=== PATIENT | female | born 1950 | race Caucasian/White ===

== ENCOUNTER 2016-10-05 10:31 | Outpatient (CLI) | payer MEDICAID, MEDICARE | END 2016-10-05 23:59 | DX: I10 Essential (primary) hypertension (principal) ==

== ENCOUNTER 2018-05-09 14:31 | Outpatient (CLI) | payer MEDICARE ==
[2018-05-09 19:31] LABS: BASOPHILS # (AUTO) 0.2 10^3/uL (0.0-0.1); BASOPHILS % (AUTO) 2.1 %; EOSINOPHILS # (AUTO) 0.1 10^3/uL (0.0-0.7); EOSINOPHILS % (AUTO) 1.8 %; HGB - HEMOGLOBIN 13.9 g/dL (12.0-16.0); LYMPHOCYTES # (AUTO) 1.8 10^3/uL (1.5-3.5); LYMPHOCYTES % (AUTO) 22.5 %; MEAN CORPUSCULAR HEMOGLOBIN 29.7 pg (27.0-31.0); MEAN PLATELET VOLUME 8.3 fL (7.9-10.8); MONOCYTES # (AUTO) 0.9 10^3/uL (0.0-1.0); MONOCYTES % (AUTO) 11.5 %; NEUTROPHILS % (AUTO) 62.1 %; PLT - PLATELET COUNT 405 10^3/uL (130-450); RED BLOOD COUNT 4.69 10^6/uL (4.20-5.40); RED CELL DISTRIBUTION WIDTH 14.4 % (12.0-15.0); WHITE BLOOD COUNT 8.1 x10^3/uL (4.8-10.8)
[2018-05-09 20:09] LABS: ALBUMIN 4.1 g/dL (3.2-5.5); ALBUMIN/GLOBULIN RATIO 1.2 (1.0-2.2); ALKALINE PHOSPHATASE 67 IU/L (42-121); ALT ALANINE AMINOTRANSFERASE 28 IU/L (10-60); AST ASPARTATE AMINOTRANSFERASE 31 IU/L (10-42); BILIRUBIN,TOTAL 0.8 mg/dL (0.2-1.0); BUN - BLOOD UREA NITROGEN 22 mg/dL (6-20); CALCIUM 9.3 mg/dL (8.5-10.3); CARBON DIOXIDE - CO2 26 mmol/L (21-32); CHLORIDE 105 mmol/L (101-111); CHOL/HDL RATIO 4.7 (<4.4); CHOLESTEROL 204 mg/dL; CREATININE 1.4 mg/dL (0.4-1.0); GFR - MDRD 38 (>89); GLUCOSE 96 mg/dL (70-100); HDL CHOLESTEROL 43 mg/dL; LDL CHOLESTEROL,CALCULATED 118 mg/dL; LDL/HDL RATIO 2.7 (<4.4); SODIUM 139 mmol/L (135-145); TOTAL PROTEIN 7.4 g/dL (6.7-8.2); VLDL CHOLESTEROL 43 mg/dL
== END 2018-05-09 14:32 ==
LOC: LAB.N 14:31
PROVIDERS: ATTEND Nurse Practitioner
DX: I10 Essential (primary) hypertension (principal)
CPT/HCPCS: 36415; 80053; 80061; 83721; 85025

== ENCOUNTER 2018-10-09 14:21 | Inpatient (IN) | payer MEDICARE ==
--- NOTE | 2018-10-09 14:49 | ED Physician Documentation ---
PD HPI ALTERED MENTAL STATUS - Stated complaint Stated Complaint: AMS/DIZZY - Chief complaint Chief Complaint: Neuro - History obtained from History obtained from: Patient, Family - History of Present Illness Timing - onset: How many days ago (several days of progressive weakness, nausea, less appetite. No pains in head, chest, abd. Denies vomiting nor diarrhea, but has had little appetite. Some frequency of urination, without pain per se. No cough, congestion nor sore throat.) Timing - duration: Days (few) Timing - details: Gradual onset, Still present Quality / character: Less responsive, Confused, Other (general weakness. Less oral intake. Still taking usual medications, except for today.) Associated symptoms: Urinary sx, General weakness. 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 denies: Fever Nose: denies: Rhinorrhea / runny nose, Congestion Throat: denies: Sore throat Cardiac: denies: Chest pain / pressure Respiratory: denies: Cough GI: reports: Abdominal Pain (cramping general pains), Nausea. denies: Vomiting, Diarrhea : reports: Frequency (she says just small amounts of urine out the past couple of days.) Skin: denies: Rash Neurologic: reports: Generalized weakness, Confused, Altered mental status. denies: Focal weakness, Headache, Head injury PD PAST MEDICAL HISTORY - Past Medical History Cardiovascular: Hypertension Respiratory: None Neuro: Other (prior anuerysms with surgery years ago, stable, without seizures nor ongoing headaches.) Endocrine/Autoimmune: None GI: None - Present Medications Home Medications: Ambulatory Orders Medication Instructions Recorded Confirmed Amlodipine Besylate 10 mg PO DAILY 10/09/18 Lisinopril 40 mg PO DAILY 10/09/18 - Allergies Allergies/Adverse Reactions: Allergies Allergy/AdvReac Type Severity Reaction Status Date / Time No Known Drug Allergies Allergy Verified 10/09/18 15:57 PD ED PE NORMAL - Vitals Vital signs reviewed: Yes (cool to the touch, hypotensive) - General General: No: Alert and oriented X 3 (sleepy but rousable, opens eyes and 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 Symmetric facial and extremity movements. ) - HEENT HEENT: Ears normal, Pharynx benign. No: Moist mucous membranes - Neck Neck: Supple, no meningeal sign, No adenopathy - Cardiac Cardiac: RRR, No murmur - Respiratory Respiratory: Clear bilaterally - Abdomen Abdomen: Normal bowel sounds, Soft, Non distended, No organomegaly, Other (some tenderness mid abdomen without guarding nor percussion tenderness. Bowel sounds diminished. ) - Female Female : Deferred - Rectal Rectal: Deferred - Back Back: No CVA TTP - Derm Derm: Warm and dry. No: Normal color (pale) - Extremities Extremities: No tenderness to palpate, Normal ROM s pain, No edema - Neuro Neuro: No motor deficit. No: Alert and oriented X 3 Eye Opening: To Voice Motor: Localizes to Pain Verbal: Confused GCS Score: 12 Results - Vitals Vitals: Vital Signs - 24 hr 10/09/18 10/09/18 10/09/18 14:28 14:30 14:32 Temperature 35.2 C L Heart Rate 102 H 83 87 Respiratory 14 22 21 Rate Blood Pressure 70/57 L 103/74 83/40 L O2 Saturation 91 L 94 93 10/09/18 10/09/18 10/09/18 14:45 15:02 15:30 Temperature 34.3 C L Heart Rate 84 85 87 Respiratory 20 19 18 Rate Blood Pressure 74/29 L 103/74 103/74 O2 Saturation 96 95 97 10/09/18 10/09/18 10/09/18 16:01 16:03 16:15 Temperature 36.5 C Heart Rate 85 94 86 Respiratory 18 18 18 Rate Blood Pressure 115/64 102/78 111/82 H O2 Saturation 93 93 94 10/09/18 10/09/18 16:29 16:30 Temperature 36.5 C Heart Rate 88 Respiratory 18 Rate Blood Pressure 115/77 O2 Saturation 94 Oxygen O2 Source Nasal cannula Oxygen Flow Rate 2 - Labs Labs: Laboratory Tests 10/09/18 10/09/18 10/09/18 14:45 14:45 14:45 WBC 17.8 H RBC 5.18 Hgb 15.6 Hct 46.5 MCV 89.7 MCH 30.1 MCHC 33.6 RDW 14.3 Plt Count 601 H MPV 8.1 Neut # (Auto) 15.1 H Lymph # (Auto) 1.6 [place] # (Auto) 0.9 Eos # (Auto) 0.0 Baso # (Auto) 0.1 Absolute Nucleated RBC 0.01 Nucleated RBC % 0.1 PT 14.3 H INR 1.3 H APTT 28.9 Sodium 137 Potassium 3.0 L Chloride 93 L Carbon Dioxide 21 Anion Gap 23.0 H BUN 89 H* Creatinine 3.9 H Estimated GFR (MDRD) 11 L Glucose 209 H Lactic Acid Calcium 9.6 Magnesium Total Bilirubin 1.7 H AST 40 ALT 29 Alkaline Phosphatase 62 Total Protein 8.0 Albumin 3.9 Globulin 4.1 Albumin/Globulin Ratio 1.0 Lipase 61 H Urine Color Urine Clarity Urine pH Ur Specific [place] Urine Protein Urine Glucose (UA) Urine Ketones Urine Occult Blood Urine Nitrite Urine Bilirubin Urine Urobilinogen Ur Leukocyte Esterase Urine RBC Urine WBC Ur Squamous Epith Cells Amorphous Sediment Urine Bacteria Ur Microscopic Review Urine Culture Comments Influenza A (Rapid) Influenza B (Rapid) 10/09/18 10/09/18 10/09/18 14:45 14:45 15:04 WBC RBC Hgb Hct MCV MCH MCHC RDW Plt Count MPV Neut # (Auto) Lymph # (Auto) [place] # (Auto) Eos # (Auto) Baso # (Auto) Absolute Nucleated RBC Nucleated RBC % PT INR APTT Sodium Potassium Chloride Carbon Dioxide Anion Gap BUN Creatinine Estimated GFR (MDRD) Glucose Lactic Acid 6.0 H* Calcium Magnesium 2.8 Total Bilirubin AST ALT Alkaline Phosphatase Total Protein Albumin Globulin Albumin/Globulin Ratio Lipase Urine Color Urine Clarity Urine pH Ur Specific [place] Urine Protein Urine Glucose (UA) Urine Ketones Urine Occult Blood Urine Nitrite Urine Bilirubin Urine Urobilinogen Ur Leukocyte Esterase Urine RBC Urine WBC Ur Squamous Epith Cells Amorphous Sediment Urine Bacteria Ur Microscopic Review Urine Culture Comments Influenza A (Rapid) Negative Influenza B (Rapid) Negative 10/09/18 15:45 WBC RBC Hgb Hct MCV MCH MCHC RDW Plt Count MPV Neut # (Auto) Lymph # (Auto) [place] # (Auto) Eos # (Auto) Baso # (Auto) Absolute Nucleated RBC Nucleated RBC % PT INR APTT Sodium Potassium Chloride Carbon Dioxide Anion Gap BUN Creatinine Estimated GFR (MDRD) Glucose Lactic Acid Calcium Magnesium Total Bilirubin AST ALT Alkaline Phosphatase Total Protein Albumin Globulin Albumin/Globulin Ratio Lipase Urine Color YELLOW Urine Clarity CLOUDY Urine pH 7.5 Ur Specific [place] 1.020 Urine Protein 30 H Urine Glucose (UA) NEGATIVE Urine Ketones TRACE Urine Occult Blood NEGATIVE Urine Nitrite NEGATIVE Urine Bilirubin NEGATIVE Urine Urobilinogen 0.2 (NORMAL) Ur Leukocyte Esterase MODERATE H Urine RBC None Seen Urine WBC 6-10 H Ur Squamous Epith Cells NONE SEEN Amorphous Sediment Few Urine Bacteria Moderate H Ur Microscopic Review INDICATED Urine Culture Comments INDICATED Influenza A (Rapid) Influenza B (Rapid) - Rads (name of study) chest xray Radiology: Prelim report reviewed (no infiltrates), EMP read contemporaneously, See rad report abd CT Radiology: Prelim report reviewed (no acute infectious process), EMP read contemporaneously, See rad report PD MEDICAL DECISION MAKING - ED course Complexity details: re-evaluated patient (Initially hypotensive and hypothermic with improved blood pressure given just some IV fluids. She is warmed as well. She is becoming more alert. She does have markers for sepsis with hypothermia, hypotension, elevated white count and lactate. There is possible UTI on urinalysis. We will treat general sepsis antibiotics. No other obvious source at this time.), considered differential (Concern for sepsis or metabolic disorder. She does seem dehydrated. She is hypotensive and hypothermic we will give IV fluids and warm her. Place a To catheter and to assess output and also her urine since she has been having some dysuria. Will check flu test and chest x-ray. She has some mild general abdominal tenderness we can get a CT scan to evaluate.), d/w patient Departure - Departure Disposition: 66 [facility] DC/Xfer Clinical Impression: Dehydration, Acute renal insufficiency, General weakness Sepsis Qualifiers: Sepsis type: sepsis due to unspecified organism Qualified Code(s): A41.9 - Sepsis, unspecified organism UTI (urinary tract infection) Qualifiers: Urinary tract infection type: acute cystitis Hematuria presence: without hematuria Qualified Code(s): N30.00 - Acute cystitis without hematuria Condition: Stable Record reviewed to determine appropriate education?: Yes
[2018-10-09] MEDS ORDERED: SODIUM CHLORIDE 0.9% 1,000 ML IV ONE (15:11)
[2018-10-09 15:18] LABS: BASOPHILS # (AUTO) 0.1 10^3/uL (0.0-0.1); BASOPHILS % (AUTO) 0.5 %; EOSINOPHILS % (AUTO) 0.2 %; HGB - HEMOGLOBIN 15.6 g/dL (12.0-16.0); INR 1.3 (0.8-1.2); LYMPHOCYTES # (AUTO) 1.6 10^3/uL (1.5-3.5); LYMPHOCYTES % (AUTO) 9.1 %; MEAN CORPUSCULAR HEMOGLOBIN 30.1 pg (27.0-31.0); MEAN CORPUSCULAR HGB CONC 33.6 g/dL (32.0-36.0); MEAN CORPUSCULAR VOLUME 89.7 fL (81.0-99.0); MEAN PLATELET VOLUME 8.1 fL (7.9-10.8); MONOCYTES # (AUTO) 0.9 10^3/uL (0.0-1.0); MONOCYTES % (AUTO) 5.3 %; NEUTROPHILS # (AUTO) 15.1 10^3/uL (1.5-6.6); NEUTROPHILS % (AUTO) 84.9 %; PLT - PLATELET COUNT 601 10^3/uL (130-450); PT - PROTHROMBIN TIME 14.3 secs (9.9-12.6); RED BLOOD COUNT 5.18 10^6/uL (4.20-5.40); RED CELL DISTRIBUTION WIDTH 14.3 % (12.0-15.0); WHITE BLOOD COUNT 17.8 x10^3/uL (4.8-10.8)
[2018-10-09 15:27] LABS: ALBUMIN 3.9 g/dL (3.2-5.5); BILIRUBIN,TOTAL 1.7 mg/dL (0.2-1.0); CALCIUM 9.6 mg/dL (8.5-10.3); CREATININE 3.9 mg/dL (0.4-1.0)
[2018-10-09] MEDS ORDERED: CEFEPIME 2 GM in SODIUM CHLORIDE 0.9% MINIBAG 100 ML IV STA (15:33)
[2018-10-09] MEDS ORDERED: metroNIDAZOLE 500 MG/100 ML 500 MG/100 ML BAG IV STA (15:36)
[2018-10-09 15:54] LABS: GLUCOSE, URINE (UA) NEGATIVE (NEGATIVE); KETONES,URINE (UA) TRACE mg/dL (NEGATIVE); LEUKOCYTE ESTERASE, URINE MODERATE (NEGATIVE); NITRITE,URINE NEGATIVE (NEGATIVE); OCCULT BLOOD,URINE NEGATIVE (NEGATIVE); PH,URINE 7.5 PH (5.0-7.5); PROTEIN,URINE 30 mg/dL (NEGATIVE); UROBILINOGEN,URINE 0.2 (NORMAL) E.U./dL (NORMAL)
--- NOTE | 2018-10-09 16:00 | XRAY Report ---
Reason: fatigue, altered mental status Procedure Date: 10/09/2018 Accession Number: [id number] / [id number] Procedure: XR - Chest 1 View X-Ray CPT Code: 87564 FULL RESULT: EXAM: CHEST RADIOGRAPHY EXAM DATE: 10/09/2018 03:39 PM. CLINICAL HISTORY: Fatigue, altered mental status. COMPARISON: None. TECHNIQUE: 1 view. FINDINGS: Lungs/Pleura: No focal opacities evident. No pleural effusion. No pneumothorax. Mediastinum: Heart is within normal limits in size for technique. Other: Multiple ECG leads overlie the chest. IMPRESSION: No acute findings. RADIA
[2018-10-09 16:03] LABS: BILIRUBIN,URINE NEGATIVE (NEGATIVE); CLARITY,URINE CLOUDY (CLEAR); ICTOTEST,URINE NEGATIVE
[2018-10-09 16:06] LABS: RBC,URINE None Seen /HPF (0-5); SQUAMOUS EPITHELIAL CELL,UR NONE SEEN (<= Few)
[2018-10-09 16:07] LABS: AMORPHOUS SEDIMENT,UR Few /LPF; BACTERIA,URINE Moderate /HPF (None Seen)
--- NOTE | 2018-10-09 16:19 | CT Report ---
Reason: altered mental status; some abd pain Procedure Date: 10/09/2018 Accession Number: [id number] / [id number] Procedure: CT - Abdomen/Pelvis W/O CPT Code: FULL RESULT: EXAM: CT ABDOMEN AND PELVIS (CT KUB) EXAM DATE: 10/09/2018 03:57 PM. CLINICAL HISTORY: Altered mental status; some abd pain. COMPARISONS: None. TECHNIQUE: Routine axial helical CT imaging was performed through the abdomen and pelvis without IV contrast. Reconstructions: Coronal and sagittal. In accordance with CT protocol optimization, one or more of the following dose reduction techniques were utilized for this exam: automated exposure control, adjustment of mA and/or KV based on patient size, or use of iterative reconstructive technique. FINDINGS: Lung Bases: Nonspecific pleural-parenchymal densities along the lateral major fissure right lower lung. No confluent airspace opacities. Right Kidney/Ureter: No stones, hydronephrosis, or hydroureter. No perinephric fat stranding. Left Kidney/Ureter: No stones, hydronephrosis, or hydroureter. No perinephric fat stranding. Other Solid Organs: There is an exophytic 19 mm cystic mass from the tail of the pancreas, reference series 5 image 33. There is symmetric mild enlargement of both adrenal glands which retain their chevron shape. The solid organs are within expected limits on noncontrast exams. Gallbladder/Bile Ducts: Unremarkable. Peritoneal Cavity: No free fluid, free air or cecil adenopathy. Colonic diverticulosis without evidence of diverticulitis. Pelvic Organs: No bladder stones or wall thickening. Noncontrast images of the visualized pelvic organs are unremarkable. Vasculature: Unremarkable. Other: None. IMPRESSION: 1. No specific imaging findings to explain abdominal pain. 2. 19 mm exophytic cystic lesion of the pancreatic tail favors pancreatic neoplasia/IPMN. RADIA
[2018-10-09] MEDS: SODIUM CHLORIDE 0.9% 1,000 ML IV ONE ×2 (16:27→16:50)
[2018-10-09] MEDS ORDERED: POTASSIUM CHLOR 10 MEQ/100 ML 10 MEQ/100 ML BAG IV ONE (16:40)
[2018-10-09] MEDS ORDERED: ACETAMINOPHEN 325 MG TABLET PO PRN (17:19)
[2018-10-09] MEDS ORDERED: ALBUTEROL NEB 2.5 MG/3 ML INH PRN (17:19)
[2018-10-09] MEDS ORDERED: IPRATROPIUM 0.2 MG/ML NEB INH PRN (17:19)
[2018-10-09] MEDS ORDERED: ONDANSETRON 4 MG/2 ML VIAL IVP PRN (17:19)
[2018-10-09] MEDS ORDERED: PIPERACILLIN/TAZOBACTAM 3.375 GM in SODIUM CHLORIDE 0.9% MINIBAG 100 ML IV SCH (18:00)
--- NOTE | 2018-10-09 18:26 | HISTORY & PHYSICAL EXAMINATION ---
Chief Complaint - Chief Complaint Chief Complaint: weakness, chills, confusion History of Present Illness - Admitted From Admitted From:: Home - History Obtained From Records Reviewed: Yes History obtained from: patient and daughter Exam Limitations: none - History of Present Illness HPI Comment/Other: This is a 68 y/o obese patient with hx intracranial aneurysm s/p repair, HTN, hyperlipidemia, UTI's, CKD stage 2, milld vascular dementia who p/w from home with increased progressive weakness associated with pelvic pain, dysuria, confusion from baseline as per daughter as well as rigors, chills and a non- productive cough. Patient had a FC in ED with bag showing cloudy urine with initial BP 74/29, was given agressive IVF resuscitation with improved SBP>100, found to be in PRAVIN with cr 3.9, bun 89 with K 3.0, appeared dry and in mod- severe dehydration with prior BP meds haven been taken at home (HCTZ, Lisinopril, Norvasc), was also on ASA for her CVA ppx. Patient had a UA showing 6-10 WBC's with mod LE, trace ketones but with co2 21, hyperglycemic but w/o dx of Dm-2. Lactic acid was markedly elevated at 6.o but w/o a true source of infection other than suspected recurrent UTI with early sepsis and a normal CXR. WBC 17.8, patient was hypothermic at 34.3, and hypotensive, LFT's were normal and lipase as well despite abd pain but CT abd pelvis does not show hydronephrosis, however there is evidence of a 19 mm exophytic cystic lesion at the pancreatic tail that may represent neoplasm vs IPMN. Patient was started on IV cefepime and flagyl and subsequently transitioned over to empiric broad- spectrum Abx for sepsis R/T UTI likely. History - Past Medical History Cardiovascular: reports: Hypertension Respiratory: reports: None Neuro: reports: Dementia (vascular type ), Other (prior anuerysms with surgery years ago, stable, without seizures nor ongoing headaches.) Endocrine/Autoimmune: reports: None GI: reports: None - Past Surgical History Other past surgical history: IC aneyrysms on right and left s/p repair Meds/Allgy - Home Medications Home Medications: Ambulatory Orders Medication Instructions Recorded Confirmed Amlodipine Besylate 10 mg PO DAILY 10/09/18 10/09/18 Aspirin [Adult Aspirin] 81 mg PO DAILY 10/09/18 10/09/18 Hydrochlorothiazide 12.5 mg PO DAILY 10/09/18 10/09/18 Lisinopril 40 mg PO DAILY 10/09/18 10/09/18 - Allergies Allergies/Adverse Reactions: Allergies Allergy/AdvReac Type Severity Reaction Status Date / Time No Known Drug Allergies Allergy Verified 10/09/18 15:57 Review of Systems - Constitutional Constitutional: reports: Fatigue, Chills, Malaise, Weakness, Poor appetite - Cardiovascular Cariovascular: denies: Irregular heart rate, Palpitations, Chest pain - Respiratory Respiratory: reports: Cough. denies: Sputum production, Wheezing, Hemoptysis - Gastrointestinal Gastrointestinal: reports: Abdominal pain. denies: Abdominal distention, Constipation, Diarrhea, Nausea, Vomiting, Reflux/heartburn - Genitourinary Genitourinary: reports: Dysuria, Frequency. denies: Hematuria, Flank pain, Urethral discharge - Musculoskeletal Musculoskeletal: reports: Muscle weakness. denies: Joint pain, Joint swelling - Integumentary Integumentary: denies: Rash - Neurological Neurological: denies: General weakness, Focal weakness, Dizziness, Numbness, Memory problems, Seizures - Psychiatric Psychiatric: denies: Depression, Anxiety - Endocrine Endocrine: reports: Polyuria. denies: Intolerance to heat - Hematologic/Lymphatic Hematologic/Lymphatic: denies: Anemia - All Other Systems All Other Systems: reports: Reviewed and negative Prior Level of Functionality: Patient lives alone and independent with ADL's Exam - Vital Signs Reviewed Vital Signs: Yes Vital Signs: Vital Signs x48h Temp Pulse Resp BP Pulse Ox 10/09/18 18:00 36.9 C 10/09/18 17:00 88 18 112/68 94 10/09/18 16:57 88 18 103/61 93 10/09/18 16:45 87 18 103/61 93 10/09/18 16:30 88 18 115/77 94 10/09/18 16:29 36.5 C 10/09/18 16:15 36.5 C 86 18 111/82 H 94 10/09/18 16:03 94 18 102/78 93 10/09/18 16:01 85 18 115/64 93 10/09/18 15:30 34.3 C L 87 18 103/74 97 10/09/18 15:02 85 19 103/74 95 10/09/18 14:45 84 20 74/29 L 96 10/09/18 14:32 87 21 83/40 L 93 10/09/18 14:30 83 22 103/74 94 10/09/18 14:28 35.2 C L 102 H 14 70/57 L 91 L Vital Signs 10/09/18 10/09/18 10/09/18 14:28 14:30 14:32 Temperature 35.2 C L Heart Rate 102 H 83 87 Respiratory 14 22 21 Rate Blood Pressure 70/57 L 103/74 83/40 L O2 Saturation 91 L 94 93 10/09/18 10/09/18 10/09/18 14:45 15:02 15:30 Temperature 34.3 C L Heart Rate 84 85 87 Respiratory 20 19 18 Rate Blood Pressure 74/29 L 103/74 103/74 O2 Saturation 96 95 97 10/09/18 10/09/18 10/09/18 16:01 16:03 16:15 Temperature 36.5 C Heart Rate 85 94 86 Respiratory 18 18 18 Rate Blood Pressure 115/64 102/78 111/82 H O2 Saturation 93 93 94 10/09/18 10/09/18 10/09/18 16:29 16:30 16:45 Temperature 36.5 C Heart Rate 88 87 Respiratory 18 18 Rate Blood Pressure 115/77 103/61 O2 Saturation 94 93 10/09/18 10/09/18 10/09/18 16:57 17:00 18:00 Temperature 36.9 C Heart Rate 88 88 Respiratory 18 18 Rate Blood Pressure 103/61 112/68 O2 Saturation 93 94 - Physical Exam General Appearance: positive: No acute distress, Alert, Other (Acutely ill- appearing) Eyes Bilateral: positive: PERRL, EOMI ENT: positive: Pharynx nml, Dry mucous membranes. negative: Oral lesions Neck: positive: Nml inspection, Thyroid nml, No JVD, Trachea midline, Thyromegaly. negative: Carotid bruit Respiratory: positive: Chest non-tender, No respiratory distress, Breath sounds nml. negative: Wheezes, Rales, Rhonchi Cardiovascular: positive: Regular rate & rhythm, No murmur, No gallop. negative: JVD present, Systolic murmur, Gallop/S4 Peripheral Pulses: positive: 2+ Abdomen: positive: Non-tender, No organomegaly, Nml bowel sounds, No distention. negative: Tenderness Back: positive: Nml inspection. negative: CVA tenderness (R), CVA tenderness (L) Skin: positive: Color nml, No rash, Dry Extremities: positive: Non-tender, Full ROM, Nml appearance. negative: Pedal edema, Calf tenderness Neurologic/Psychiatric: positive: Oriented x3, CN's nml (2-12) (: SP pain on deep palpation) Sepsis Event Note (H) - Evaluation Current Stage of Sepsis: Sepsis Possible source of Sepsis: positive: Genitourinary - Sepsis Criteria Sepsis Criteria: Recorded Temperature greater than 38.3C or Less than 36C, WBC count greater than 12,000 or less than 4000, SHUTTLELESS LOOM WEAVER: altered consciousness (unrelated to primary neuro pathology), SBP less than 90 mmHg, Metabolic: lactate > 2 mmol/L Conclusion/Plan - Problem List (1) Sepsis Conclusion/Plan: Admit to ICU. Start early goal directed tx. Consider CVp plcmt and pressor support. Likely secondary to UTI with clinical presentation of pelvic pain and cystitis signs and symptoms, with weakly positive UTI would f/u urine cx ans well as blood cultures to eval for bacteremia with e. coli as this has been known to cause loss of endothelial tone due to toxinogenic nature relate to process. empirically treat with broad spectrum IV abx with zosyn, early-goal directed tx with ivf's, will defer pressors for now as she has responded to 1 L NS, cont with LR at 175 ml/hr. Daily labs, cycle lactic acid levels, markedly high at 6 on presentation. Cortisol level in am. Flu was negative. Do to he severity of illness advance care planning may need to be discussed as she does have risk factors such as prior IC-aneurysms and UTI's. However family was not ready to discuss this right now. Qualifiers: Sepsis type: sepsis due to unspecified organism Qualified Code(s): A41.9 - Sepsis, unspecified organism (2) PRAVIN (acute kidney injury) Conclusion/Plan: Secondary to combined pre-renal from dehydration, hypoperfusion with possible sepsis-induced component with loss of endothelial tone. There also could be an intr-renal component due to drug-induced from DAISHA-inh as she was on lisinopril as well as htcz and norvasc as well. Would avoid ALL nephrotoxic agents for now, CT abd/pelvis shows no hydronephrosis, no stones and uric acid to follow. Would continue to perfuse kidneys, correct lytes, no evidence of metabolic acidosis. Uremia p/w pravin and will follow daily labs. Not candidate for FREIGHT FLAGMAN at this time. (3) Hypokalemia Conclusion/Plan: Secondary to the use of HCTZ with decrease PO fluid intake and mod dehydration. Would continue with high rate LR to replete electrolyte d/o. Will hold off o KCL for now in the setting of impaired GFR and Cr clearance. Magnesium level nrml. (4) CKD (chronic kidney disease), stage II Conclusion/Plan: Sec to HTN nephropathy. Would avoid nephrotoxic agents, correct lytes, monitor. (5) Hyperglycemia Conclusion/Plan: Check A1c, does not have dx of DM-2. (6) Lactic acidosis Conclusion/Plan: Secondary to sepsis and not metabolic acidosis as bicarb normal with no evidence of DKA. Would continue to provide IVF resuscitation as part of the early goal directed tx for sepsis, cycle levels until they begin to normalize. (7) Dehydration Conclusion/Plan: Secondary to sepsis process along with diureses and decrease oral intake with progression. Hypochloremia seen. Continue with LR at high rate, electrolyte repletion. (8) UTI (urinary tract infection) Conclusion/Plan: Patient has decreased mobility along with hx prior UTI's with no likelihood of recurrence with e. coli or other pathogen (i.e klebsiella, citrobacter). Would treat with IV zosyn for now until Ucx comes back for ID and sensitivities. Qualifiers: Urinary tract infection type: acute cystitis Hematuria presence: without hematuria Qualified Code(s): N30.00 - Acute cystitis without hematuria (9) Pancreatic cyst Conclusion/Plan: CT abd/plevis shows a 19 mm exophytic pancreatic tail cyst that may represent neoplasm/IPMN, will monitor for now, lipase normal. - Lab Results Fish Bones: 10/09/18 14:45 10/09/18 14:45 - Diagnostic Imaging Results Diagnostic Imaging Results: positive: Final report reviewed (CXR shows no acute CP process) - EKG Results EKG Interpreted Independently: Yes EKG Comparison: Old EKG unavailable (SR) Core Measures - Anticipated LOS I expect patient to be DC'd or transferred within 96 hours.: Yes - Issues Hospital Issues and Management Plan: Sepsis with complications if not treated early with IV abx, fluids and critical care mgmt - DVT/VTE - Prophylaxis VTE/DVT Device ordered at admit?: No Not Ordered - Medical Reason: Not indicated VTE/DVT Prophylaxis med ordered at admit?: Yes - Stroke - Rehab Assessment Rehab services assessment to be ordered?: No Not Ordered - Medical Reason: Not indicated - AMI - Statin at Admit Aspirin Prescribed on Admit: Yes
[2018-10-09 18:36] LABS: CREATININE,URINE 28.6 mg/dL; PROTEIN/CREATININE RATIO,URINE 2.1 (<=0.2)
[2018-10-09] MEDS: LACTATED RINGERS 1,000 ML IV SCH (18:46)
[2018-10-09] MEDS: PIPERACILLIN/TAZOBACTAM 3.375 GM in SODIUM CHLORIDE 0.9% MINIBAG 100 ML IV SCH (19:25)
[2018-10-09] MEDS: FAMOTIDINE 20 MG/50 ML 50 ML IV SCH (20:46)
[2018-10-09] MEDS: guaiFENesin/DEXTROMETHORPHAN 10 ML UDC PO PRN (20:46)
[2018-10-09] MEDS ORDERED: TEMAZEPAM 7.5 MG CAPSULE PO PRN (22:02)
[2018-10-10] MEDS: LACTATED RINGERS 1,000 ML IV SCH ×4 (01:02→21:34)
[2018-10-10] MEDS: SODIUM CHLORIDE FLUSH 0.9% 10 ML SYRINGE IVP SCH ×3 (01:05→16:33)
[2018-10-10] MEDS: PIPERACILLIN/TAZOBACTAM 3.375 GM in SODIUM CHLORIDE 0.9% MINIBAG 100 ML IV SCH (06:15)
[2018-10-10 06:23] LABS: BASOPHILS # (AUTO) 0.1 10^3/uL (0.0-0.1); BASOPHILS % (AUTO) 0.8 %; EOSINOPHILS # (AUTO) 0.1 10^3/uL (0.0-0.7); EOSINOPHILS % (AUTO) 0.6 %; HGB - HEMOGLOBIN 12.7 g/dL (12.0-16.0); LYMPHOCYTES # (AUTO) 0.9 10^3/uL (1.5-3.5); LYMPHOCYTES % (AUTO) 7.2 %; MEAN CORPUSCULAR HEMOGLOBIN 29.5 pg (27.0-31.0); MEAN CORPUSCULAR HGB CONC 32.6 g/dL (32.0-36.0); MEAN CORPUSCULAR VOLUME 90.5 fL (81.0-99.0); MEAN PLATELET VOLUME 7.5 fL (7.9-10.8); MONOCYTES # (AUTO) 1.1 10^3/uL (0.0-1.0); NEUTROPHILS # (AUTO) 9.9 10^3/uL (1.5-6.6); NEUTROPHILS % (AUTO) 82.4 %; PLT - PLATELET COUNT 359 10^3/uL (130-450); RED BLOOD COUNT 4.32 10^6/uL (4.20-5.40); WHITE BLOOD COUNT 12.1 x10^3/uL (4.8-10.8)
[2018-10-10 06:48] LABS: BILIRUBIN,TOTAL 1.3 mg/dL (0.2-1.0); CALCIUM 8.4 mg/dL (8.5-10.3); CREATININE 2.9 mg/dL (0.4-1.0); MAGNESIUM 2.4 mg/dL (1.7-2.8); TOTAL PROTEIN 6.1 g/dL (6.7-8.2)
[2018-10-10] MEDS ORDERED: POTASSIUM CHLORIDE 20 MEQ TABLET PO SCH ×3 (07:45→08:00)
[2018-10-10] MEDS: ASPIRIN EC 81 MG TABLET PO SCH (08:24)
[2018-10-10] MEDS: ENOXAPARIN 30 MG/0.3 ML SYRINGE SUBQ SCH (08:24)
[2018-10-10] MEDS: FAMOTIDINE 20 MG/50 ML 50 ML IV SCH (08:25)
[2018-10-10] MEDS: SODIUM CHLORIDE FLUSH 0.9% 10 ML SYRINGE IVP PRN (11:58)
[2018-10-10] MEDS: POTASSIUM CHLOR 10 MEQ/100 ML 10 MEQ/100 ML BAG IV SCH ×2 (11:58→13:44)
--- NOTE | 2018-10-10 13:29 | PROVIDER PROGRESS NOTE ---
Subjective - Prog Note Date Prog Note Date: 10/10/18 Prog Note Time: 13:28 - Subjective Pt reports feeling: Improved (Patient feels tired was not able to sleep last night.) Current Medications - Current Medications Current Medications: Active Medications Acetaminophen (Tylenol) 650 mg PO Q4HR PRN PRN Reason: Pain 1 to 4 Albuterol () 2.5 mg INH Q4HR PRN PRN Reason: Wheezing Aspirin (Ecotrin) 81 mg PO DAILY [facility] Last Admin: 10/10/18 08:24 Dose: 81 mg Enoxaparin Sodium (Lovenox) 30 mg SUBQ DAILY [facility] Last Admin: 10/10/18 08:24 Dose: 30 mg Guaifenesin (Robitussin Dm) 10 ml PO Q6HR PRN PRN Reason: Cough Last Admin: 10/09/18 20:46 Dose: 10 ml Famotidine (Pepcid 20 Mg/50 Ml) 50 mls @ 100 mls/hr IV DAILY [facility] Last Infusion: 10/10/18 09:00 Dose: Infused Piperacillin Sod/Tazobactam (Sod 3.375 gm/ Sodium Chloride) 100 mls @ 25 mls/hr IV Q12H [facility] Last Infusion: 10/10/18 10:21 Dose: Infused Potassium Chloride (Potassium Chloride) 10 meq in 100 mls @ 100 mls/hr IV Q1H [facility] Stop: 10/10/18 13:59 Last Infusion: 10/10/18 12:15 Dose: 0 mls/hr Lactated Ringer's (Lr) 1,000 mls @ 125 mls/hr IV .Q8H [facility] Ipratropium [place] (Atrovent) 0.5 mg INH Q6HR PRN PRN Reason: Wheezing Ondansetron HCl (Zofran Inj) 4 mg IVP Q6HR PRN PRN Reason: Nausea / Vomiting Sodium Chloride (Normal Saline Flush 0.9%) 10 ml IVP 0100,0900,1700 [facility] Last Admin: 10/10/18 08:25 Dose: 10 ml Sodium Chloride (Normal Saline Flush 0.9%) 10 ml IVP PRN PRN PRN Reason: NEEDED PER PROVIDER ORDERS Last Admin: 10/10/18 11:58 Dose: 10 ml Temazepam (Restoril) 7.5 mg PO QPM PRN PRN Reason: Insomnia Last Admin: 10/09/18 22:38 Dose: 7.5 mg Amlodipine Besylate 10 mg PO DAILY 10/09/18 Aspirin [Adult Aspirin] 81 mg PO DAILY 10/09/18 Hydrochlorothiazide 12.5 mg PO DAILY 10/09/18 Lisinopril 40 mg PO DAILY 10/09/18 Objective - Vital Signs/Intake & Output Reviewed Vital Signs: Yes Vital Signs: Vital Signs x48h Temp Pulse Resp BP Pulse Ox 10/10/18 11:00 37.2 C 71 14 111/71 92 10/10/18 10:00 37.2 C 74 16 112/58 L 94 10/10/18 09:00 37.2 C 76 16 105/54 L 93 10/10/18 07:00 37.2 C 71 16 121/69 94 10/10/18 06:00 37.3 C 67 15 103/64 94 Intake & Output: Intake & Output 10/07/18 10/08/18 10/09/18 10/10/18 23:59 23:59 23:59 23:59 Intake Total 3091.667 2781.250 Output Total 725 1110 Balance 2366.667 1671.250 - Objective General Appearance: positive: No acute distress, Alert, Other (weakness) Eyes Bilateral: positive: Normal inspection, PERRL, EOMI, Conjunctivae nml, No scleral icterus ENT: positive: ENT inspection nml, Pharynx nml, Dry mucous membranes Neck: positive: Nml inspection, Thyroid nml, No JVD, Trachea midline. negative: Thyromegaly, Carotid bruit Respiratory: positive: Chest non-tender, No respiratory distress, Breath sounds nml Cardiovascular: positive: Regular rate & rhythm, No murmur, No gallop. negative: Irregularly irregular, Systolic murmur, Gallop/S4 Peripheral Pulses: 2+ Dorsalis pedis (R), 2+ Dorsalis pedis (L) Abdomen: positive: Non-tender, No organomegaly, Nml bowel sounds, No distention. negative: Tenderness, Hepatomegaly, Splenomegaly Skin: positive: Color nml, No rash, Warm. negative: Pallor Extremities: positive: Non-tender, Full ROM, Nml appearance. negative: Pedal edema Neurologic/Psychiatric: positive: Oriented x3, CN's nml (2-12) - Lab Results Fish Bones: 10/10/18 06:15 10/10/18 06:15 Other Labs: Lab Results x24hrs 10/10/18 10/10/18 10/10/18 Range/Units 11:36 06:50 06:15 WBC (4.8-10.8) x10^3/uL RBC (4.20-5.40) 10^6/uL Hgb (12.0-16.0) g/dL Hct (37.0-47.0) % MCV (81.0-99.0) fL MCH (27.0-31.0) pg MCHC (32.0-36.0) g/dL RDW (12.0-15.0) % Plt Count (130-450) 10^3/uL MPV (7.9-10.8) fL Neut # (Auto) (1.5-6.6) 10^3/uL Lymph # (Auto) (1.5-3.5) 10^3/uL Phillips # (Auto) (0.0-1.0) 10^3/uL Eos # (Auto) (0.0-0.7) 10^3/uL Baso # (Auto) (0.0-0.1) 10^3/uL Absolute Nucleated RBC x10^3/uL Nucleated RBC % /100WBC PT (9.9-12.6) secs INR (0.8-1.2) APTT (24.9-33.3) secs Sodium (135-145) mmol/L Potassium (3.5-5.0) mmol/L Chloride (101-111) mmol/L Carbon Dioxide (21-32) mmol/L Anion Gap (6-13) BUN (6-20) mg/dL Creatinine (0.4-1.0) mg/dL Estimated GFR (MDRD) (>89) Glucose (70-100) mg/dL POC Whole Bld Glucose 99 93 (70 - 100) mg/dL Lactic Acid 0.8 (0.5-2.2) mmol/L Uric Acid (2.6-7.2) mg/dL Calcium (8.5-10.3) mg/dL Magnesium (1.7-2.8) mg/dL Total Bilirubin (0.2-1.0) mg/dL AST (10-42) IU/L ALT (10-60) IU/L Alkaline Phosphatase (42-121) IU/L Total Protein (6.7-8.2) g/dL Albumin (3.2-5.5) g/dL Globulin (2.1-4.2) g/dL Albumin/Globulin Ratio (1.0-2.2) Lipase (22-51) U/L Cortisol ug/dL Urine Color Urine Clarity (CLEAR) Urine pH (5.0-7.5) PH Ur Specific [place]by (1.002-1.030) Urine Protein (NEGATIVE) mg/dL Urine Glucose (UA) (NEGATIVE) mg/dL Urine Ketones (NEGATIVE) mg/dL Urine Occult Blood (NEGATIVE) Urine Nitrite (NEGATIVE) Urine Bilirubin (NEGATIVE) Urine Urobilinogen (NORMAL) E.U./dL Ur Leukocyte Esterase (NEGATIVE) Urine RBC (0-5) /HPF Urine WBC (0-5) /HPF Ur Squamous Epith Cells (<= Few) Amorphous Sediment /LPF Urine Bacteria (None Seen) /HPF Ur Microscopic Review Urine Culture Comments Urine Creatinine mg/dL Ur Total Protein Timed mg/dL Protein/Creatinin Ratio (<=0.2) Influenza A (Rapid) (Negative) Influenza B (Rapid) (Negative) MRSA Surveill Initial (NEGATIVE) 10/10/18 10/10/18 10/09/18 Range/Units 06:15 06:15 22:09 WBC 12.1 H (4.8-10.8) x10^3/uL RBC 4.32 (4.20-5.40) 10^6/uL Hgb 12.7 (12.0-16.0) g/dL Hct 39.1 (37.0-47.0) % MCV 90.5 (81.0-99.0) fL MCH 29.5 (27.0-31.0) pg MCHC 32.6 (32.0-36.0) g/dL RDW 14.0 (12.0-15.0) % Plt Count 359 (130-450) 10^3/uL MPV 7.5 L (7.9-10.8) fL Neut # (Auto) 9.9 H (1.5-6.6) 10^3/uL Lymph # (Auto) 0.9 L (1.5-3.5) 10^3/uL Phillips # (Auto) 1.1 H (0.0-1.0) 10^3/uL Eos # (Auto) 0.1 (0.0-0.7) 10^3/uL Baso # (Auto) 0.1 (0.0-0.1) 10^3/uL Absolute Nucleated RBC 0.00 x10^3/uL Nucleated RBC % 0.0 /100WBC PT (9.9-12.6) secs INR (0.8-1.2) APTT (24.9-33.3) secs Sodium 136 (135-145) mmol/L Potassium 2.6 L (3.5-5.0) mmol/L Chloride 102 (101-111) mmol/L Carbon Dioxide 24 (21-32) mmol/L Anion Gap 10.0 (6-13) BUN 77 H (6-20) mg/dL Creatinine 2.9 H (0.4-1.0) mg/dL Estimated GFR (MDRD) 16 L (>89) Glucose 98 (70-100) mg/dL POC Whole Bld Glucose 161 H (70 - 100) mg/dL Lactic Acid (0.5-2.2) mmol/L Uric Acid (2.6-7.2) mg/dL Calcium 8.4 L (8.5-10.3) mg/dL Magnesium 2.4 (1.7-2.8) mg/dL Total Bilirubin 1.3 H (0.2-1.0) mg/dL AST 23 (10-42) IU/L ALT 24 (10-60) IU/L Alkaline Phosphatase 51 (42-121) IU/L Total Protein 6.1 L (6.7-8.2) g/dL Albumin 3.0 L (3.2-5.5) g/dL Globulin 3.1 (2.1-4.2) g/dL Albumin/Globulin Ratio 1.0 (1.0-2.2) Lipase (22-51) U/L Cortisol ug/dL Urine Color Urine Clarity (CLEAR) Urine pH (5.0-7.5) PH Ur Specific [place] (1.002-1.030) Urine Protein (NEGATIVE) mg/dL Urine Glucose (UA) (NEGATIVE) mg/dL Urine Ketones (NEGATIVE) mg/dL Urine Occult Blood (NEGATIVE) Urine Nitrite (NEGATIVE) Urine Bilirubin (NEGATIVE) Urine Urobilinogen (NORMAL) E.U./dL Ur Leukocyte Esterase (NEGATIVE) Urine RBC (0-5) /HPF Urine WBC (0-5) /HPF Ur Squamous Epith Cells (<= Few) Amorphous Sediment /LPF Urine Bacteria (None Seen) /HPF Ur Microscopic Review Urine Culture Comments Urine Creatinine mg/dL Ur Total Protein Timed mg/dL Protein/Creatinin Ratio (<=0.2) Influenza A (Rapid) (Negative) Influenza B (Rapid) (Negative) MRSA Surveill Initial (NEGATIVE) 10/09/18 10/09/18 10/09/18 Range/Units 21:34 18:42 18:12 WBC (4.8-10.8) x10^3/uL RBC (4.20-5.40) 10^6/uL Hgb (12.0-16.0) g/dL Hct (37.0-47.0) % MCV (81.0-99.0) fL MCH (27.0-31.0) pg MCHC (32.0-36.0) g/dL RDW (12.0-15.0) % Plt Count (130-450) 10^3/uL MPV (7.9-10.8) fL Neut # (Auto) (1.5-6.6) 10^3/uL Lymph # (Auto) (1.5-3.5) 10^3/uL Phillips # (Auto) (0.0-1.0) 10^3/uL Eos # (Auto) (0.0-0.7) 10^3/uL Baso # (Auto) (0.0-0.1) 10^3/uL Absolute Nucleated RBC x10^3/uL Nucleated RBC % /100WBC PT (9.9-12.6) secs INR (0.8-1.2) APTT (24.9-33.3) secs Sodium (135-145) mmol/L Potassium (3.5-5.0) mmol/L Chloride (101-111) mmol/L Carbon Dioxide (21-32) mmol/L Anion Gap (6-13) BUN (6-20) mg/dL Creatinine (0.4-1.0) mg/dL Estimated GFR (MDRD) (>89) Glucose (70-100) mg/dL POC Whole Bld Glucose (70 - 100) mg/dL Lactic Acid 1.7 2.3 H (0.5-2.2) mmol/L Uric Acid (2.6-7.2) mg/dL Calcium (8.5-10.3) mg/dL Magnesium (1.7-2.8) mg/dL Total Bilirubin (0.2-1.0) mg/dL AST (10-42) IU/L ALT (10-60) IU/L Alkaline Phosphatase (42-121) IU/L Total Protein (6.7-8.2) g/dL Albumin (3.2-5.5) g/dL Globulin (2.1-4.2) g/dL Albumin/Globulin Ratio (1.0-2.2) Lipase (22-51) U/L Cortisol ug/dL Urine Color Urine Clarity (CLEAR) Urine pH (5.0-7.5) PH Ur Specific [place] (1.002-1.030) Urine Protein (NEGATIVE) mg/dL Urine Glucose (UA) (NEGATIVE) mg/dL Urine Ketones (NEGATIVE) mg/dL Urine Occult Blood (NEGATIVE) Urine Nitrite (NEGATIVE) Urine Bilirubin (NEGATIVE) Urine Urobilinogen (NORMAL) E.U./dL Ur Leukocyte Esterase (NEGATIVE) Urine RBC (0-5) /HPF Urine WBC (0-5) /HPF Ur Squamous Epith Cells (<= Few) Amorphous Sediment /LPF Urine Bacteria (None Seen) /HPF Ur Microscopic Review Urine Culture Comments Urine Creatinine mg/dL Ur Total Protein Timed mg/dL Protein/Creatinin Ratio (<=0.2) Influenza A (Rapid) (Negative) Influenza B (Rapid) (Negative) MRSA Surveill Initial NEGATIVE (NEGATIVE) 10/09/18 10/09/18 10/09/18 Range/Units 15:45 15:45 15:04 WBC (4.8-10.8) x10^3/uL RBC (4.20-5.40) 10^6/uL Hgb (12.0-16.0) g/dL Hct (37.0-47.0) % MCV (81.0-99.0) fL MCH (27.0-31.0) pg MCHC (32.0-36.0) g/dL RDW (12.0-15.0) % Plt Count (130-450) 10^3/uL MPV (7.9-10.8) fL Neut # (Auto) (1.5-6.6) 10^3/uL Lymph # (Auto) (1.5-3.5) 10^3/uL Phillips # (Auto) (0.0-1.0) 10^3/uL Eos # (Auto) (0.0-0.7) 10^3/uL Baso # (Auto) (0.0-0.1) 10^3/uL Absolute Nucleated RBC x10^3/uL Nucleated RBC % /100WBC PT (9.9-12.6) secs INR (0.8-1.2) APTT (24.9-33.3) secs Sodium (135-145) mmol/L Potassium (3.5-5.0) mmol/L Chloride (101-111) mmol/L Carbon Dioxide (21-32) mmol/L Anion Gap (6-13) BUN (6-20) mg/dL Creatinine (0.4-1.0) mg/dL Estimated GFR (MDRD) (>89) Glucose (70-100) mg/dL POC Whole Bld Glucose (70 - 100) mg/dL Lactic Acid (0.5-2.2) mmol/L Uric Acid (2.6-7.2) mg/dL Calcium (8.5-10.3) mg/dL Magnesium (1.7-2.8) mg/dL Total Bilirubin (0.2-1.0) mg/dL AST (10-42) IU/L ALT (10-60) IU/L Alkaline Phosphatase (42-121) IU/L Total Protein (6.7-8.2) g/dL Albumin (3.2-5.5) g/dL Globulin (2.1-4.2) g/dL Albumin/Globulin Ratio (1.0-2.2) Lipase (22-51) U/L Cortisol ug/dL Urine Color YELLOW Urine Clarity CLOUDY (CLEAR) Urine pH 7.5 (5.0-7.5) PH Ur Specific Ashby 1.020 (1.002-1.030) Urine Protein 30 H (NEGATIVE) mg/dL Urine Glucose (UA) NEGATIVE (NEGATIVE) mg/dL Urine Ketones TRACE (NEGATIVE) mg/dL Urine Occult Blood NEGATIVE (NEGATIVE) Urine Nitrite NEGATIVE (NEGATIVE) Urine Bilirubin NEGATIVE (NEGATIVE) Urine Urobilinogen 0.2 (NORMAL) (NORMAL) E.U./dL Ur Leukocyte Esterase MODERATE H (NEGATIVE) Urine RBC None Seen (0-5) /HPF Urine WBC 6-10 H (0-5) /HPF Ur Squamous Epith Cells NONE SEEN (<= Few) Amorphous Sediment Few /LPF Urine Bacteria Moderate H (None Seen) /HPF Ur Microscopic Review INDICATED Urine Culture Comments INDICATED Urine Creatinine 28.6 mg/dL Ur Total Protein Timed 61 mg/dL Protein/Creatinin Ratio 2.1 H (<=0.2) Influenza A (Rapid) Negative (Negative) Influenza B (Rapid) Negative (Negative) MRSA Surveill Initial (NEGATIVE) 10/09/18 10/09/18 10/09/18 Range/Units 14:45 14:45 14:45 WBC (4.8-10.8) x10^3/uL RBC (4.20-5.40) 10^6/uL Hgb (12.0-16.0) g/dL Hct (37.0-47.0) % MCV (81.0-99.0) fL MCH (27.0-31.0) pg MCHC (32.0-36.0) g/dL RDW (12.0-15.0) % Plt Count (130-450) 10^3/uL MPV (7.9-10.8) fL Neut # (Auto) (1.5-6.6) 10^3/uL Lymph # (Auto) (1.5-3.5) 10^3/uL Phillips # (Auto) (0.0-1.0) 10^3/uL Eos # (Auto) (0.0-0.7) 10^3/uL Baso # (Auto) (0.0-0.1) 10^3/uL Absolute Nucleated RBC x10^3/uL Nucleated RBC % /100WBC PT (9.9-12.6) secs INR (0.8-1.2) APTT (24.9-33.3) secs Sodium (135-145) mmol/L Potassium (3.5-5.0) mmol/L Chloride (101-111) mmol/L Carbon Dioxide (21-32) mmol/L Anion Gap (6-13) BUN (6-20) mg/dL Creatinine (0.4-1.0) mg/dL Estimated GFR (MDRD) (>89) Glucose (70-100) mg/dL POC Whole Bld Glucose (70 - 100) mg/dL Lactic Acid (0.5-2.2) mmol/L Uric Acid 15.6 H (2.6-7.2) mg/dL Calcium (8.5-10.3) mg/dL Magnesium 2.8 (1.7-2.8) mg/dL Total Bilirubin (0.2-1.0) mg/dL AST (10-42) IU/L ALT (10-60) IU/L Alkaline Phosphatase (42-121) IU/L Total Protein (6.7-8.2) g/dL Albumin (3.2-5.5) g/dL Globulin (2.1-4.2) g/dL Albumin/Globulin Ratio (1.0-2.2) Lipase (22-51) U/L Cortisol 66.4 ug/dL Urine Color Urine Clarity (CLEAR) Urine pH (5.0-7.5) PH Ur Specific [place] (1.002-1.030) Urine Protein (NEGATIVE) mg/dL Urine Glucose (UA) (NEGATIVE) mg/dL Urine Ketones (NEGATIVE) mg/dL Urine Occult Blood (NEGATIVE) Urine Nitrite (NEGATIVE) Urine Bilirubin (NEGATIVE) Urine Urobilinogen (NORMAL) E.U./dL Ur Leukocyte Esterase (NEGATIVE) Urine RBC (0-5) /HPF Urine WBC (0-5) /HPF Ur Squamous Epith Cells (<= Few) Amorphous Sediment /LPF Urine Bacteria (None Seen) /HPF Ur Microscopic Review Urine Culture Comments Urine Creatinine mg/dL Ur Total Protein Timed mg/dL Protein/Creatinin Ratio (<=0.2) Influenza A (Rapid) (Negative) Influenza B (Rapid) (Negative) MRSA Surveill Initial (NEGATIVE) 10/09/18 10/09/18 10/09/18 Range/Units 14:45 14:45 14:45 WBC (4.8-10.8) x10^3/uL RBC (4.20-5.40) 10^6/uL Hgb (12.0-16.0) g/dL Hct (37.0-47.0) % MCV (81.0-99.0) fL MCH (27.0-31.0) pg MCHC (32.0-36.0) g/dL RDW (12.0-15.0) % Plt Count (130-450) 10^3/uL MPV (7.9-10.8) fL Neut # (Auto) (1.5-6.6) 10^3/uL Lymph # (Auto) (1.5-3.5) 10^3/uL Phillips # (Auto) (0.0-1.0) 10^3/uL Eos # (Auto) (0.0-0.7) 10^3/uL Baso # (Auto) (0.0-0.1) 10^3/uL Absolute Nucleated RBC x10^3/uL Nucleated RBC % /100WBC PT 14.3 H (9.9-12.6) secs INR 1.3 H (0.8-1.2) APTT 28.9 (24.9-33.3) secs Sodium 137 (135-145) mmol/L Potassium 3.0 L (3.5-5.0) mmol/L Chloride 93 L (101-111) mmol/L Carbon Dioxide 21 (21-32) mmol/L Anion Gap 23.0 H (6-13) BUN 89 H* (6-20) mg/dL Creatinine 3.9 H (0.4-1.0) mg/dL Estimated GFR (MDRD) 11 L (>89) Glucose 209 H (70-100) mg/dL POC Whole Bld Glucose (70 - 100) mg/dL Lactic Acid 6.0 H* (0.5-2.2) mmol/L Uric Acid (2.6-7.2) mg/dL Calcium 9.6 (8.5-10.3) mg/dL Magnesium (1.7-2.8) mg/dL Total Bilirubin 1.7 H (0.2-1.0) mg/dL AST 40 (10-42) IU/L ALT 29 (10-60) IU/L Alkaline Phosphatase 62 (42-121) IU/L Total Protein 8.0 (6.7-8.2) g/dL Albumin 3.9 (3.2-5.5) g/dL Globulin 4.1 (2.1-4.2) g/dL Albumin/Globulin Ratio 1.0 (1.0-2.2) Lipase 61 H (22-51) U/L Cortisol ug/dL Urine Color Urine Clarity (CLEAR) Urine pH (5.0-7.5) PH Ur Specific Ashby (1.002-1.030) Urine Protein (NEGATIVE) mg/dL Urine Glucose (UA) (NEGATIVE) mg/dL Urine Ketones (NEGATIVE) mg/dL Urine Occult Blood (NEGATIVE) Urine Nitrite (NEGATIVE) Urine Bilirubin (NEGATIVE) Urine Urobilinogen (NORMAL) E.U./dL Ur Leukocyte Esterase (NEGATIVE) Urine RBC (0-5) /HPF Urine WBC (0-5) /HPF Ur Squamous Epith Cells (<= Few) Amorphous Sediment /LPF Urine Bacteria (None Seen) /HPF Ur Microscopic Review Urine Culture Comments Urine Creatinine mg/dL Ur Total Protein Timed mg/dL Protein/Creatinin Ratio (<=0.2) Influenza A (Rapid) (Negative) Influenza B (Rapid) (Negative) MRSA Surveill Initial (NEGATIVE) 10/09/18 Range/Units 14:45 WBC 17.8 H (4.8-10.8) x10^3/uL RBC 5.18 (4.20-5.40) 10^6/uL Hgb 15.6 (12.0-16.0) g/dL Hct 46.5 (37.0-47.0) % MCV 89.7 (81.0-99.0) fL MCH 30.1 (27.0-31.0) pg MCHC 33.6 (32.0-36.0) g/dL RDW 14.3 (12.0-15.0) % Plt Count 601 H (130-450) 10^3/uL MPV 8.1 (7.9-10.8) fL Neut # (Auto) 15.1 H (1.5-6.6) 10^3/uL Lymph # (Auto) 1.6 (1.5-3.5) 10^3/uL Phillips # (Auto) 0.9 (0.0-1.0) 10^3/uL Eos # (Auto) 0.0 (0.0-0.7) 10^3/uL Baso # (Auto) 0.1 (0.0-0.1) 10^3/uL Absolute Nucleated RBC 0.01 x10^3/uL Nucleated RBC % 0.1 /100WBC PT (9.9-12.6) secs INR (0.8-1.2) APTT (24.9-33.3) secs Sodium (135-145) mmol/L Potassium (3.5-5.0) mmol/L Chloride (101-111) mmol/L Carbon Dioxide (21-32) mmol/L Anion Gap (6-13) BUN (6-20) mg/dL Creatinine (0.4-1.0) mg/dL Estimated GFR (MDRD) (>89) Glucose (70-100) mg/dL POC Whole Bld Glucose (70 - 100) mg/dL Lactic Acid (0.5-2.2) mmol/L Uric Acid (2.6-7.2) mg/dL Calcium (8.5-10.3) mg/dL Magnesium (1.7-2.8) mg/dL Total Bilirubin (0.2-1.0) mg/dL AST (10-42) IU/L ALT (10-60) IU/L Alkaline Phosphatase (42-121) IU/L Total Protein (6.7-8.2) g/dL Albumin (3.2-5.5) g/dL Globulin (2.1-4.2) g/dL Albumin/Globulin Ratio (1.0-2.2) Lipase (22-51) U/L Cortisol ug/dL Urine Color Urine Clarity (CLEAR) Urine pH (5.0-7.5) PH Ur Specific Ashby (1.002-1.030) Urine Protein (NEGATIVE) mg/dL Urine Glucose (UA) (NEGATIVE) mg/dL Urine Ketones (NEGATIVE) mg/dL Urine Occult Blood (NEGATIVE) Urine Nitrite (NEGATIVE) Urine Bilirubin (NEGATIVE) Urine Urobilinogen (NORMAL) E.U./dL Ur Leukocyte Esterase (NEGATIVE) Urine RBC (0-5) /HPF Urine WBC (0-5) /HPF Ur Squamous Epith Cells (<= Few) Amorphous Sediment /LPF Urine Bacteria (None Seen) /HPF Ur Microscopic Review Urine Culture Comments Urine Creatinine mg/dL Ur Total Protein Timed mg/dL Protein/Creatinin Ratio (<=0.2) Influenza A (Rapid) (Negative) Influenza B (Rapid) (Negative) MRSA Surveill Initial (NEGATIVE) - Diagnostic Imaging Diagnostic Imaging Results: positive: Final report reviewed (CT shows no renal obstruction. Pancreatic tail exophytic cystic mass) ABX Reporting Has patient been on IV antibiotics over the past 48 hours?: Yes Sepsis Event Note (H) - Evaluation Current Stage of Sepsis: Sepsis Possible source of Sepsis: positive: Genitourinary - Sepsis Criteria Sepsis Criteria: WBC count greater than 12,000 or less than 4000, GEAR AND SPLINE GRINDER: altered consciousness (unrelated to primary neuro pathology) Assessment/Plan - Problem List (1) Sepsis Impression: Improving. continue with empiric iv abx and early goal directed tx, decrease ivf's to 12ml/hr. Ucx shows >100K e.coli, as this has been known to cause loss of endothelial tone due to toxinogenic nature relate to process. Would de- escalate to rocephin pending sensitivities. Do to he severity of illness advance care planning may need to be discussed as she does have risk factors such as prior IC-aneurysms and UTI's. Qualifiers: Sepsis type: sepsis due to unspecified organism Qualified Code(s): A41.9 - Sepsis, unspecified organism (2) UTI (urinary tract infection) Impression: E. coli >100K, would de-escalate to IV rocephin and d/c zosyn for now pending sensitivities. Qualifiers: Urinary tract infection type: acute cystitis Hematuria presence: without hematuria Qualified Code(s): N30.00 - Acute cystitis without hematuria (3) PRAVIN (acute kidney injury) Impression: Good UO with improved renal function. PRAVIN Secondary to pre-renal from dehydration, hypoperfusion with possible sepsis-induced component with loss of endothelial tone. There also could be an intr-renal component due to drug- induced from DAISHA-inh as she was on lisinopril as well as htcz and norvasc as well. Would avoid ALL nephrotoxic agents for now, CT abd/pelvis shows no hydronephrosis, no stones and uric acid to follow. Would continue to perfuse kidneys, correct lytes, continue with IVF's, no evidence of metabolic acidosis. Not candidate for [employer] at this time. (4) Hypokalemia Impression: Low K in the setting of PRAVIN, mag normal. Would give a K-rider for total of 20 meq. Previously on HCTZ with decrease PO fluid intake and mod dehydration. Would continue with LR to replete electrolyte d/o. 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 Would avoid nephrotoxic agents, correct lytes, monitor. (6) Pancreatic cyst Impression: CT abd/plevis shows a 19 mm exophytic pancreatic tail cyst that may represent neoplasm/IPMN, will monitor for now, lipase normal. No S/S of abd pain or colitis.
[2018-10-11] MEDS: SODIUM CHLORIDE FLUSH 0.9% 10 ML SYRINGE IVP SCH ×3 (01:10→17:25)
[2018-10-11 05:06] LABS: BASOPHILS # (AUTO) 0.1 10^3/uL (0.0-0.1); EOSINOPHILS # (AUTO) 0.1 10^3/uL (0.0-0.7); EOSINOPHILS % (AUTO) 1.2 %; HGB - HEMOGLOBIN 11.9 g/dL (12.0-16.0); LYMPHOCYTES # (AUTO) 0.7 10^3/uL (1.5-3.5); LYMPHOCYTES % (AUTO) 10.4 %; MEAN CORPUSCULAR HEMOGLOBIN 30.3 pg (27.0-31.0); MEAN CORPUSCULAR HGB CONC 33.1 g/dL (32.0-36.0); MEAN CORPUSCULAR VOLUME 91.3 fL (81.0-99.0); MEAN PLATELET VOLUME 7.7 fL (7.9-10.8); MONOCYTES # (AUTO) 0.7 10^3/uL (0.0-1.0); MONOCYTES % (AUTO) 10.4 %; NEUTROPHILS # (AUTO) 5.3 10^3/uL (1.5-6.6); PLT - PLATELET COUNT 303 10^3/uL (130-450); RED BLOOD COUNT 3.92 10^6/uL (4.20-5.40); RED CELL DISTRIBUTION WIDTH 13.8 % (12.0-15.0); WHITE BLOOD COUNT 6.9 x10^3/uL (4.8-10.8)
[2018-10-11 05:21] LABS: ALBUMIN 2.7 g/dL (3.2-5.5); CALCIUM 8.7 mg/dL (8.5-10.3); CREATININE 2.1 mg/dL (0.4-1.0); PHOSPHORUS 1.9 mg/dL (2.5-4.6)
[2018-10-11] MEDS: LACTATED RINGERS 1,000 ML IV SCH ×3 (05:58→20:37)
[2018-10-11] MEDS: NEUTRA-PHOS 250 MG TABLET PO SCH ×4 (08:03→17:25)
[2018-10-11] MEDS ORDERED: cefTRIAXone 1 GM in SODIUM CHLORIDE 0.9% MINIBAG 100 ML IV SCH (09:00)
[2018-10-11] MEDS: SODIUM CHLORIDE FLUSH 0.9% 10 ML SYRINGE IVP PRN ×2 (09:50→12:04)
[2018-10-11] MEDS: POTASSIUM CHLOR 10 MEQ/100 ML 10 MEQ/100 ML BAG IV SCH ×2 (11:14→13:05)
[2018-10-11] MEDS: FAMOTIDINE 20 MG TABLET PO SCH ×2 (11:48→20:35)
[2018-10-11] MEDS: ASPIRIN EC 81 MG TABLET PO SCH (11:48)
[2018-10-11] MEDS: ENOXAPARIN 30 MG/0.3 ML SYRINGE SUBQ SCH (11:55)
[2018-10-11] MEDS: guaiFENesin/DEXTROMETHORPHAN 10 ML UDC PO PRN ×2 (13:05→20:47)
[2018-10-11] MEDS ORDERED: IPRATROPIUM/ALBUTEROL 3 ML NEB INH PRN (13:36)
--- NOTE | 2018-10-11 16:15 | PROVIDER PROGRESS NOTE ---
Subjective - Prog Note Date Prog Note Date: 10/11/18 Prog Note Time: 16:13 - Subjective Pt reports feeling: Improved Subjective: Patient with overall improvement but very weak and tired. Pelvic pain improved. Current Medications - Current Medications Current Medications: Active Medications Acetaminophen (Tylenol) 650 mg PO Q4HR PRN PRN Reason: Pain 1 to 4 Albuterol () 2.5 mg INH Q4HR PRN PRN Reason: Wheezing Last Admin: 10/11/18 11:34 Dose: 2.5 mg Albuterol/Ipratropium (Duoneb) 3 ml INH Q4HR PRN PRN Reason: Wheezing Aspirin (Ecotrin) 81 mg PO DAILY [facility] Last Admin: 10/11/18 11:48 Dose: 81 mg Enoxaparin Sodium (Lovenox) 30 mg SUBQ DAILY [facility] Last Admin: 10/11/18 11:55 Dose: 30 mg Famotidine (Pepcid) 10 mg PO BID [facility] Last Admin: 10/11/18 11:48 Dose: 10 mg Guaifenesin (Robitussin Dm) 10 ml PO Q6HR PRN PRN Reason: Cough Last Admin: 10/11/18 13:05 Dose: 10 ml Ceftriaxone Sodium 1 gm/ (Sodium Chloride) 100 mls @ 200 mls/hr IV DAILY [facility] Last Infusion: 10/11/18 10:20 Dose: Infused Lactated Ringer's (Lr) 1,000 mls @ 75 mls/hr IV .[id number] [facility] Last Infusion: 10/11/18 14:25 Dose: 75 mls/hr Ipratropium [place] (Atrovent) 0.5 mg INH Q6HR PRN PRN Reason: Wheezing Ondansetron HCl (Zofran Inj) 4 mg IVP Q6HR PRN PRN Reason: Nausea / Vomiting Potassium Chloride (K-Dur) 20 meq PO BID [facility] Sodium Chloride (Normal Saline Flush 0.9%) 10 ml IVP 0100,0900,1700 [facility] Last Admin: 10/11/18 12:06 Dose: Not Given Sodium Chloride (Normal Saline Flush 0.9%) 10 ml IVP PRN PRN PRN Reason: NEEDED PER PROVIDER ORDERS Last Admin: 10/11/18 12:04 Dose: 20 ml Sodium Phosphate (K-Phos Neutral) 250 mg PO TIDWM [facility] Last Admin: 10/11/18 12:02 Dose: 250 mg Temazepam (Restoril) 7.5 mg PO QPM PRN PRN Reason: Insomnia Last Admin: 10/09/18 22:38 Dose: 7.5 mg Amlodipine Besylate 10 mg PO DAILY 10/09/18 Aspirin [Adult Aspirin] 81 mg PO DAILY 10/09/18 Hydrochlorothiazide 12.5 mg PO DAILY 10/09/18 Lisinopril 40 mg PO DAILY 10/09/18 Objective - Vital Signs/Intake & Output Vital Signs: Vital Signs x48h Temp Pulse Pulse Resp BP Pulse Ox 10/11/18 15:56 37.1 C 72 15 135/80 H 96 10/11/18 15:00 64 16 142/80 H 95 10/11/18 14:16 37.1 C 84 17 95 10/11/18 13:00 84 17 119/80 93 10/11/18 12:13 37.1 C 81 16 125/79 94 10/11/18 11:34 71 15 10/11/18 11:00 64 16 144/77 H 94 10/11/18 10:03 63 13 123/67 96 10/11/18 09:00 66 13 126/64 95 Intake & Output: Intake & Output 10/08/18 10/09/18 10/10/18 10/11/18 23:59 23:59 23:59 23:59 Intake Total 3091.667 5601.667 2055.083 Output Total 725 2165 1825 Balance 2366.667 3436.667 230.083 - Objective General Appearance: positive: No acute distress, Alert, Other (chronically ill- appearing) Eyes Bilateral: positive: Normal inspection, Conjunctivae nml ENT: positive: ENT inspection nml, Pharynx nml Neck: positive: Nml inspection, Thyroid nml, No JVD Respiratory: positive: Chest non-tender, No respiratory distress, Breath sounds nml Cardiovascular: positive: Regular rate & rhythm, No murmur, No gallop. negative: Irregularly irregular Peripheral Pulses: 2+ Dorsalis pedis (R), 2+ Dorsalis pedis (L) Abdomen: positive: Non-tender, No organomegaly, Nml bowel sounds Back: positive: Nml inspection. negative: CVA tenderness (R), CVA tenderness (L) Skin: positive: Color nml, No rash, Warm, Dry Extremities: positive: Non-tender, Full ROM, Nml appearance, Pedal edema. negative: Calf tenderness, Joint swelling Neurologic/Psychiatric: positive: Oriented x3, CN's nml (2-12) - Lab Results Fish Bones: 10/11/18 04:50 10/11/18 04:50 Other Labs: Lab Results x24hrs 10/11/18 10/11/18 Range/Units 04:50 04:50 WBC 6.9 (4.8-10.8) x10^3/uL RBC 3.92 L (4.20-5.40) 10^6/uL Hgb 11.9 L (12.0-16.0) g/dL Hct 35.8 L (37.0-47.0) % MCV 91.3 (81.0-99.0) fL MCH 30.3 (27.0-31.0) pg MCHC 33.1 (32.0-36.0) g/dL RDW 13.8 (12.0-15.0) % Plt Count 303 (130-450) 10^3/uL MPV 7.7 L (7.9-10.8) fL Neut # (Auto) 5.3 (1.5-6.6) 10^3/uL Lymph # (Auto) 0.7 L (1.5-3.5) 10^3/uL [place] # (Auto) 0.7 (0.0-1.0) 10^3/uL Eos # (Auto) 0.1 (0.0-0.7) 10^3/uL Baso # (Auto) 0.1 (0.0-0.1) 10^3/uL Absolute Nucleated RBC 0.01 x10^3/uL Nucleated RBC % 0.1 /100WBC Sodium 141 (135-145) mmol/L Potassium 2.8 L (3.5-5.0) mmol/L Chloride 103 (101-111) mmol/L Carbon Dioxide 27 (21-32) mmol/L Anion Gap 11.0 (6-13) BUN 45 H (6-20) mg/dL Creatinine 2.1 H (0.4-1.0) mg/dL Estimated GFR (MDRD) 23 L (>89) Glucose 102 H (70-100) mg/dL Calcium 8.7 (8.5-10.3) mg/dL Phosphorus 1.9 L (2.5-4.6) mg/dL Albumin 2.7 L (3.2-5.5) g/dL ABX Reporting Has patient been on IV antibiotics over the past 48 hours?: Yes Sepsis Event Note (H) - Evaluation Current Stage of Sepsis: Resolved Possible source of Sepsis: positive: Genitourinary Assessment/Plan - Problem List (1) UTI (urinary tract infection) Impression: Pansensitive e.coli UTI. Would continue with IV rocephin. Sepsis essentially resolved. Would d.c FC, dec IVF rate. Continue med mgmt. Qualifiers: Urinary tract infection type: acute cystitis Hematuria presence: without hematuria Qualified Code(s): N30.00 - Acute cystitis without hematuria (2) PRAVIN (acute kidney injury) Impression: Improved from initial cr 3.9, now at 2.1, continue perfusing kidneys with IVF's to decrease rate. Good UO with improved renal function. PRAVIN Secondary to pre- renal from dehydration, hypoperfusion with possible sepsis-induced component with loss of endothelial tone. There also could be an intr-renal component due to drug-induced from DAISHA-inh as she was on lisinopril as well as htcz and norvasc as well. Would avoid ALL nephrotoxic agents for now, CT abd/pelvis shows no hydronephrosis, no stones and uric acid to follow. No evidence of metabolic acidosis or uremia and therefore not candidate for [facility] at this time. (3) Hypokalemia Impression: Asymptomatic. Low K in the setting of PRAVIN, mag normal. Would give a K-rider for total of 20 meq. KDUR PO daily now along with neutraphos for low phosphorous levels. Previously on HCTZ with decrease PO fluid intake and mod dehydration. Would continue with LR to replete electrolyte d/o. (4) CKD (chronic kidney disease), stage II Impression: Sec to HTN nephropathy. Would avoid nephrotoxic agents, correct lytes, monitor. (5) Pancreatic cyst Impression: Would follow up as outpatient. CT abd/plevis shows a 19 mm exophytic pancreatic tail cyst that may represent neoplasm/IPMN, will monitor for now, lipase normal. No S/S of abd pain or colitis.
[2018-10-11] MEDS: POTASSIUM CHLORIDE 20 MEQ TABLET PO SCH (20:34)
[2018-10-12] MEDS: SODIUM CHLORIDE FLUSH 0.9% 10 ML SYRINGE IVP SCH ×4 (03:14→23:26)
[2018-10-12] MEDS: guaiFENesin/DEXTROMETHORPHAN 10 ML UDC PO PRN ×2 (03:43→09:27)
[2018-10-12] MEDS: MIN OIL/DIMETHICON/COCONUT OIL 92 GM TUBE TOP PRN (03:43)
[2018-10-12 06:14] LABS: ALBUMIN 2.9 g/dL (3.2-5.5); CALCIUM 8.6 mg/dL (8.5-10.3); CREATININE 1.5 mg/dL (0.4-1.0)
[2018-10-12] MEDS: NEUTRA-PHOS 250 MG TABLET PO SCH ×3 (08:36→17:41)
[2018-10-12] MEDS: POTASSIUM CHLORIDE 20 MEQ TABLET PO SCH ×4 (08:36→20:01)
[2018-10-12] MEDS: POTASSIUM CHLOR 10 MEQ/100 ML 10 MEQ/100 ML BAG IV SCH ×2 (08:42→10:03)
[2018-10-12] MEDS: FAMOTIDINE 20 MG TABLET PO SCH ×2 (09:25→20:02)
[2018-10-12] MEDS: ASPIRIN EC 81 MG TABLET PO SCH (09:27)
[2018-10-12] MEDS: ENOXAPARIN 30 MG/0.3 ML SYRINGE SUBQ SCH (09:27)
[2018-10-12] MEDS: LACTATED RINGERS 1,000 ML IV SCH (09:33)
--- NOTE | 2018-10-12 11:59 | PROVIDER PROGRESS NOTE ---
Subjective - Prog Note Date Prog Note Date: 10/12/18 Prog Note Time: 11:56 - Subjective Pt reports feeling: Improved (feels weak and not willing to work with PT. Depressed) Current Medications - Current Medications Current Medications: Active Medications Acetaminophen (Tylenol) 650 mg PO Q4HR PRN PRN Reason: Pain 1 to 4 Albuterol () 2.5 mg INH Q4HR PRN PRN Reason: Wheezing Last Admin: 10/11/18 11:34 Dose: 2.5 mg Albuterol/Ipratropium (Duoneb) 3 ml INH Q4HR PRN PRN Reason: Wheezing Aspirin (Ecotrin) 81 mg PO DAILY [facility] Last Admin: 10/12/18 09:27 Dose: 81 mg Enoxaparin Sodium (Lovenox) 30 mg SUBQ DAILY [facility] Last Admin: 10/12/18 09:27 Dose: 30 mg Famotidine (Pepcid) 10 mg PO BID [facility] Last Admin: 10/12/18 09:25 Dose: 10 mg Guaifenesin (Robitussin Dm) 10 ml PO Q6HR PRN PRN Reason: Cough Last Admin: 10/12/18 09:27 Dose: 10 ml Ceftriaxone Sodium 1 gm/ (Sodium Chloride) 100 mls @ 200 mls/hr IV DAILY [facility] Last Infusion: 10/11/18 10:20 Dose: Infused Lactated Ringer's (Lr) 1,000 mls @ 75 mls/hr IV .[id number] [facility] Last Admin: 10/12/18 09:33 Dose: 75 mls/hr Ipratropium [place] (Atrovent) 0.5 mg INH Q6HR PRN PRN Reason: Wheezing Mineral Oil (Cavilon) 1 applic TOP PRN PRN PRN Reason: Skin Care Last Admin: 10/12/18 03:43 Dose: 1 applic Ondansetron HCl (Zofran Inj) 4 mg IVP Q6HR PRN PRN Reason: Nausea / Vomiting Potassium Chloride (K-Dur) 20 meq PO BID [facility] Last Admin: 10/12/18 08:36 Dose: 20 meq Potassium Chloride (K-Dur) 40 meq PO Q4H [facility]; Protocol Stop: 10/12/18 12:01 Last Admin: 10/12/18 11:34 Dose: Not Given Sodium Chloride (Normal Saline Flush 0.9%) 10 ml IVP 0100,0900,1700 [facility] Last Admin: 10/12/18 10:04 Dose: Not Given Sodium Chloride (Normal Saline Flush 0.9%) 10 ml IVP PRN PRN PRN Reason: NEEDED PER PROVIDER ORDERS Last Admin: 10/11/18 12:04 Dose: 20 ml Sodium Phosphate (K-Phos Neutral) 250 mg PO TIDWM [facility] Last Admin: 10/12/18 08:36 Dose: 250 mg Temazepam (Restoril) 7.5 mg PO QPM PRN PRN Reason: Insomnia Last Admin: 10/09/18 22:38 Dose: 7.5 mg Amlodipine Besylate 10 mg PO DAILY 10/09/18 Aspirin [Adult Aspirin] 81 mg PO DAILY 10/09/18 Hydrochlorothiazide 12.5 mg PO DAILY 10/09/18 Lisinopril 40 mg PO DAILY 10/09/18 Objective - Vital Signs/Intake & Output Reviewed Vital Signs: Yes Vital Signs: Vital Signs x48h Temp Pulse Resp BP Pulse Ox 10/12/18 11:00 65 14 164/94 H 96 10/12/18 09:00 67 16 154/96 H 95 10/12/18 08:17 37.1 C 66 14 167/98 H 97 10/12/18 06:59 50 L 14 151/84 H 96 10/12/18 06:00 76 18 159/89 H 97 10/12/18 05:00 57 L 14 164/96 H 95 10/12/18 04:00 37.1 C 80 16 113/66 94 Intake & Output: Intake & Output 10/09/18 10/10/18 10/11/18 10/12/18 23:59 23:59 23:59 23:59 Intake Total 3091.667 5601.667 3010.083 2540.00 Output Total 725 2165 1930 650 Balance 2366.667 3436.667 4831.537 8773.00 - Objective General Appearance: positive: No acute distress, Other (blunted affect, morbidly obese) Eyes Bilateral: positive: PERRL, Conjunctivae nml ENT: positive: Pharynx nml, No signs of dehydration Neck: positive: Nml inspection, Thyroid nml, No JVD, Trachea midline. negative: Thyromegaly Respiratory: positive: Chest non-tender, No respiratory distress, Breath sounds nml Cardiovascular: positive: Regular rate & rhythm, No murmur, No gallop Peripheral Pulses: 2+ Dorsalis pedis (R), 2+ Dorsalis pedis (L) Abdomen: positive: Non-tender, No organomegaly, Nml bowel sounds, No distention. negative: Tenderness Back: positive: Nml inspection Skin: positive: Color nml, No rash, Warm. negative: Pallor Extremities: positive: Non-tender, Full ROM, Nml appearance, Pedal edema Neurologic/Psychiatric: positive: Oriented x3, CN's nml (2-12), Depressed mood/a ffect - Lab Results Fish Bones: 10/11/18 04:50 10/12/18 05:07 Other Labs: Lab Results x24hrs 10/12/18 10/12/18 Range/Units 05:07 05:07 Sodium 140 (135-145) mmol/L Potassium 2.9 L (3.5-5.0) mmol/L Chloride 100 L (101-111) mmol/L Carbon Dioxide 31 (21-32) mmol/L Anion Gap 9.0 (6-13) BUN 24 H (6-20) mg/dL Creatinine 1.5 H (0.4-1.0) mg/dL Estimated GFR (MDRD) 35 L (>89) Glucose 103 H (70-100) mg/dL Calcium 8.6 (8.5-10.3) mg/dL Phosphorus 2.0 L (2.5-4.6) mg/dL Magnesium 1.8 (1.7-2.8) mg/dL Albumin 2.9 L (3.2-5.5) g/dL ABX Reporting Has patient been on IV antibiotics over the past 48 hours?: Yes Sepsis Event Note (H) - Evaluation Current Stage of Sepsis: Resolved Possible source of Sepsis: positive: Genitourinary Assessment/Plan - Problem List (1) UTI (urinary tract infection) Impression: Pansensitive e.coli UTI. Would now de-escalate to PO keflex 1g po bid x 4 more days. Sepsis essentially resolved. Qualifiers: Urinary tract infection type: acute cystitis Hematuria presence: without hematuria Qualified Code(s): N30.00 - Acute cystitis without hematuria (2) PRAVIN (acute kidney injury) Impression: Improved from initial cr 3.9, now at 1.5, baseline is 1.0 with prior CKD-2, Good UO with improved renal function. PRAVIN Secondary to pre-renal from dehydration, hypoperfusion with possible sepsis-induced component with loss of endothelial tone. There also could be an intr-renal component due to drug-induced from DAISHA- inh as she was on lisinopril as well as htcz and norvasc as well. Would avoid ALL nephrotoxic agents for now, CT abd/pelvis shows no hydronephrosis, no stones and uric acid to follow. No evidence of metabolic acidosis or uremia. (3) Hypokalemia Impression: Continues to require K-riders with the addition of Kdur at 20 meq po bid, which will be ok since patient with improved creatinine clearance and renal function. Also receiving neutraphos for low phosphorous levels. Previously on HCTZ with decrease PO fluid intake and mod dehydration. Would d/c LR for now and encourage po intake. (4) Depression Impression: Maybe related to her chronic medical conditions as she conveys she has been s [place] bed bound for several weeks now. Would encourage and engage patient to participate with PT and start her on low dose remeron along with megace to stimulate her appetite. Qualifiers: Depression Type: other depression Qualified Code(s): F32.89 - Other specified depressive episodes (5) FTT (failure to thrive) in adult Impression: With associated anorexia as it pertains to her depressive disorder. Would initiate megace plus remeron and optimize nutritional mgmt.
[2018-10-12] MEDS: SODIUM CHLORIDE FLUSH 0.9% 10 ML SYRINGE IVP PRN (12:32)
[2018-10-12] MEDS: amLODIPine 5 MG TABLET PO SCH (12:39)
[2018-10-12] MEDS: MEGESTROL 400 MG/10 ML UDC PO SCH (12:39)
[2018-10-12] MEDS: cephALEXin 250 MG CAPSULE PO SCH ×2 (12:49→20:01)
[2018-10-12] MEDS: MIRTAZAPINE 15 MG TABLET PO SCH (20:01)
[2018-10-13 06:46] LABS: CALCIUM 8.7 mg/dL (8.5-10.3); CREATININE 1.4 mg/dL (0.4-1.0); PHOSPHORUS 1.9 mg/dL (2.5-4.6)
[2018-10-13] MEDS: MEGESTROL 400 MG/10 ML UDC PO SCH (09:01)
[2018-10-13] MEDS: NEUTRA-PHOS 250 MG TABLET PO SCH ×3 (09:01→17:36)
[2018-10-13] MEDS: FAMOTIDINE 20 MG TABLET PO SCH ×2 (09:01→21:23)
[2018-10-13] MEDS: POTASSIUM CHLORIDE 20 MEQ TABLET PO SCH ×2 (09:01→21:24)
[2018-10-13] MEDS: ASPIRIN EC 81 MG TABLET PO SCH (09:01)
[2018-10-13] MEDS: amLODIPine 5 MG TABLET PO SCH (09:01)
[2018-10-13] MEDS: cephALEXin 250 MG CAPSULE PO SCH ×2 (09:01→21:24)
[2018-10-13] MEDS: SODIUM CHLORIDE FLUSH 0.9% 10 ML SYRINGE IVP SCH ×3 (09:02→23:59)
[2018-10-13] MEDS: ENOXAPARIN 30 MG/0.3 ML SYRINGE SUBQ SCH (09:02)
--- NOTE | 2018-10-13 09:30 | PROVIDER PROGRESS NOTE ---
Subjective - Prog Note Date Prog Note Date: 10/13/18 Prog Note Time: 09:30 - Subjective Pt reports feeling: Improved Subjective: Feels better, no dysuria, no fevers, wants PT but until Sunday am Current Medications - Current Medications Current Medications: Active Medications Acetaminophen (Tylenol) 650 mg PO Q4HR PRN PRN Reason: Pain 1 to 4 Albuterol () 2.5 mg INH Q4HR PRN PRN Reason: Wheezing Last Admin: 10/11/18 11:34 Dose: 2.5 mg Albuterol/Ipratropium (Duoneb) 3 ml INH Q4HR PRN PRN Reason: Wheezing Amlodipine Besylate (Norvasc) 5 mg PO DAILY [facility] Last Admin: 10/13/18 09:01 Dose: 5 mg Aspirin (Ecotrin) 81 mg PO DAILY [facility] Last Admin: 10/13/18 09:01 Dose: 81 mg Cephalexin (Keflex) 1,000 mg PO BID [facility] Last Admin: 10/13/18 09:01 Dose: 1,000 mg Enoxaparin Sodium (Lovenox) 30 mg SUBQ DAILY [facility] Last Admin: 10/13/18 09:02 Dose: 30 mg Famotidine (Pepcid) 10 mg PO BID [facility] Last Admin: 10/13/18 09:01 Dose: 10 mg Guaifenesin (Robitussin Dm) 10 ml PO Q6HR PRN PRN Reason: Cough Last Admin: 10/12/18 09:27 Dose: 10 ml Ipratropium [place] (Atrovent) 0.5 mg INH Q6HR PRN PRN Reason: Wheezing Megestrol Acetate (Megace) 800 mg PO DAILY [facility] Last Admin: 10/13/18 09:01 Dose: 800 mg Mineral Oil (Cavilon) 1 applic TOP PRN PRN PRN Reason: Skin Care Last Admin: 10/12/18 03:43 Dose: 1 applic Mirtazapine (Remeron) 7.5 mg PO QPM [facility] Last Admin: 10/12/18 20:01 Dose: 7.5 mg Ondansetron HCl (Zofran Inj) 4 mg IVP Q6HR PRN PRN Reason: Nausea / Vomiting Potassium Chloride (K-Dur) 20 meq PO BID [facility] Last Admin: 10/13/18 09:01 Dose: 20 meq Sodium Chloride (Normal Saline Flush 0.9%) 10 ml IVP 0100,0900,1700 [facility] Last Admin: 10/13/18 09:02 Dose: 10 ml Sodium Chloride (Normal Saline Flush 0.9%) 10 ml IVP PRN PRN PRN Reason: NEEDED PER PROVIDER ORDERS Last Admin: 10/12/18 12:32 Dose: 10 ml Sodium Phosphate (K-Phos Neutral) 250 mg PO TIDWM [facility] Last Admin: 10/13/18 09:01 Dose: 250 mg Temazepam (Restoril) 7.5 mg PO QPM PRN PRN Reason: Insomnia Last Admin: 10/09/18 22:38 Dose: 7.5 mg Amlodipine Besylate 10 mg PO DAILY 10/09/18 Aspirin [Adult Aspirin] 81 mg PO DAILY 10/09/18 Hydrochlorothiazide 12.5 mg PO DAILY 10/09/18 Lisinopril 40 mg PO DAILY 10/09/18 Objective - Vital Signs/Intake & Output Reviewed Vital Signs: Yes Vital Signs: Vital Signs x48h Temp Pulse Resp BP Pulse Ox 10/13/18 08:05 36.7 C 72 18 149/87 H 95 Intake & Output: Intake & Output 10/10/18 10/11/18 10/12/18 10/13/18 23:59 23:59 23:59 23:59 Intake Total 5601.667 3010.083 3681.00 480 Output Total 2165 1930 1050 100 Balance 3436.667 4099.011 0916.00 380 - Objective General Appearance: positive: No acute distress, Alert Eyes Bilateral: positive: Normal inspection, PERRL, EOMI ENT: positive: ENT inspection nml, Pharynx nml, No signs of dehydration Neck: positive: Nml inspection, Thyroid nml, No JVD, Trachea midline. negative: Thyromegaly, Carotid bruit Respiratory: positive: Chest non-tender, No respiratory distress, Breath sounds nml Cardiovascular: positive: Regular rate & rhythm, No murmur, No gallop. negative: Irregularly irregular, JVD present, Gallop/S4 Peripheral Pulses: 2+ Dorsalis pedis (R), 2+ Dorsalis pedis (L) Abdomen: positive: Non-tender, No organomegaly, Nml bowel sounds, No distention. negative: Tenderness Skin: positive: Color nml, No rash, Warm. negative: Pallor Extremities: positive: Non-tender, Full ROM, Nml appearance. negative: Pedal edema Neurologic/Psychiatric: positive: Oriented x3, CN's nml (2-12), Weakness, Depressed mood/affect - Lab Results Fish Bones: 10/11/18 04:50 10/13/18 06:28 Other Labs: Lab Results x24hrs 10/13/18 Range/Units 06:28 Sodium 139 (135-145) mmol/L Potassium 3.6 (3.5-5.0) mmol/L Chloride 101 (101-111) mmol/L Carbon Dioxide 31 (21-32) mmol/L Anion Gap 7.0 (6-13) BUN 15 (6-20) mg/dL Creatinine 1.4 H (0.4-1.0) mg/dL Estimated GFR (MDRD) 38 L (>89) Glucose 94 (70-100) mg/dL Calcium 8.7 (8.5-10.3) mg/dL Phosphorus 1.9 L (2.5-4.6) mg/dL Albumin 3.0 L (3.2-5.5) g/dL ABX Reporting Has patient been on IV antibiotics over the past 48 hours?: No Sepsis Event Note (H) - Evaluation Current Stage of Sepsis: Resolved Possible source of Sepsis: positive: Genitourinary - Sepsis Criteria Sepsis Criteria: WBC count greater than 12,000 or less than 4000, DELIVERY NURSE: altered consciousness (unrelated to primary neuro pathology) Assessment/Plan - Problem List (1) UTI (urinary tract infection) Impression: Pansensitive e.coli UTI. Would now de-escalate to PO keflex 1g po bid x 3 more days. Sepsis essentially resolved. Qualifiers: Urinary tract infection type: acute cystitis Hematuria presence: without hematuria Qualified Code(s): N30.00 - Acute cystitis without hematuria (2) PRAVIN (acute kidney injury) Impression: Improved from initial cr 3.9, now at 1.4, baseline is 1.0 with prior CKD-2, Good UO with improved renal function. PRAVIN Secondary to pre-renal from dehydration, hypoperfusion with possible sepsis-induced component with loss of endothelial tone. There also could be an intr-renal component due to drug-induced from DAISHA- inh as she was on lisinopril as well as htcz and norvasc as well. Would avoid ALL nephrotoxic agents for now, CT abd/pelvis shows no hydronephrosis, no stones and uric acid to follow. No evidence of metabolic acidosis or uremia. (3) Depression Impression: As it relates to her chronic medical conditions as she conveys she has been somewhat bed bound for several weeks now. Would encourage and engage patient to participate with PT. She is feeling better with a much enhanced attitude today after receiving low dose remeron along with megace to stimulate her appetite. Would engage her for continued PT in order for SNF disposition. Qualifiers: Depression Type: other depression Qualified Code(s): F32.89 - Other specified depressive episodes (5) General weakness Impression: With associated anorexia as it pertains to her depressive disorder. Continue with megace plus remeron and optimize nutritional mgmt
[2018-10-13] MEDS: MIN OIL/DIMETHICON/COCONUT OIL 92 GM TUBE TOP PRN (12:09)
[2018-10-13] MEDS: MIRTAZAPINE 15 MG TABLET PO SCH (21:23)
[2018-10-14 06:07] LABS: CALCIUM 8.5 mg/dL (8.5-10.3); CREATININE 1.5 mg/dL (0.4-1.0); PHOSPHORUS 2.2 mg/dL (2.5-4.6)
[2018-10-14] MEDS: NEUTRA-PHOS 250 MG TABLET PO SCH ×2 (08:16→12:43)
[2018-10-14] MEDS: FAMOTIDINE 20 MG TABLET PO SCH (08:16)
[2018-10-14] MEDS: amLODIPine 5 MG TABLET PO SCH (08:17)
[2018-10-14] MEDS: SODIUM CHLORIDE FLUSH 0.9% 10 ML SYRINGE IVP SCH (08:17)
[2018-10-14] MEDS: ASPIRIN EC 81 MG TABLET PO SCH (08:17)
[2018-10-14] MEDS: MIN OIL/DIMETHICON/COCONUT OIL 92 GM TUBE TOP PRN (08:17)
[2018-10-14] MEDS: POTASSIUM CHLORIDE 20 MEQ TABLET PO SCH (08:17)
[2018-10-14] MEDS: cephALEXin 250 MG CAPSULE PO SCH (08:17)
[2018-10-14] MEDS: MEGESTROL 400 MG/10 ML UDC PO SCH (08:17)
[2018-10-14] MEDS: ENOXAPARIN 30 MG/0.3 ML SYRINGE SUBQ SCH (08:23)
[2018-10-14] MEDS ORDERED: POLYETHYLENE GLYCOL 3350 17 GM PACKET PO SCH (09:00)
--- NOTE | 2018-10-14 10:51 | DISCHARGE SUMMARY ---
Discharge Summary Admit Date: 10/12/18 Discharge Date: 10/14/18 Discharging Provider: Dr. Delgado Primary Care Provider: Moira Naylor Code Status: Attempt Resuscitation Condition at Discharge: Good Discharge Disposition: SNF DC/Xfer Discharge Facility [facility]: [facility] - DIAGNOSES Admission Diagnoses: (1) Sepsis (2) PRAVIN (acute kidney injury) (3) Hypokalemia (4) CKD (chronic kidney disease), stage II (5) Hyperglycemia (6) Lactic acidosis (7) Dehydration (8) UTI (urinary tract infection) (9) Pancreatic cyst Discharge Diagnoses with Status of Each Condition: (1) Sepsis resolved (2) PRAVIN (acute kidney injury); resolved (3) Hypokalemia; resolved (4) CKD (chronic kidney disease), stage II; stable (5) Hyperglycemia, stable (6) Lactic acidosis, resolved (7) Dehydration, resolved (8) UTI (urinary tract infection); improved (9) Pancreatic cyst; stable (10) Depression (11) FTT with anorexia (12) Generalized Weakness - HPI History of Present Illness: This is a 68 y/o obese patient with hx intracranial aneurysm s/p repair, HTN, hyperlipidemia, UTI's, CKD stage 2, milld vascular dementia who p/w from home with increased progressive weakness associated with pelvic pain, dysuria, confusion from baseline as per daughter as well as rigors, chills and a non- productive cough. Patient had a FC in ED with bag showing cloudy urine with initial BP 74/29, was given agressive IVF resuscitation with improved SBP>100, found to be in PRAVIN with cr 3.9, bun 89 with K 3.0, appeared dry and in mod- severe dehydration with prior BP meds haven been taken at home (HCTZ, Lisinopril, Norvasc), was also on ASA for her CVA ppx. Patient had a UA showing 6-10 WBC's with mod LE, trace ketones but with co2 21, hyperglycemic but w/o dx of Dm-2. Lactic acid was markedly elevated at 6.o but w/o a true source of infection other than suspected recurrent UTI with early sepsis and a normal CXR. WBC 17.8, patient was hypothermic at 34.3, and hypotensive, LFT's were normal and lipase as well despite abd pain but CT abd pelvis does not show hydronephr osis, however there is evidence of a 19 mm exophytic cystic lesion at the pancreatic tail that may represent neoplasm vs IPMN. Patient was started on IV cefepime and flagyl and subsequently transitioned over to empiric broad-spectrum Abx for sepsis R/T UTI likely. - HOSPITAL COURSE Hospital Course: Gisele was admitted for PRAVIN with underlying mild CKD, AMS, UTI, progressive weakness as it relates to her PRAVIN with pelvic pain, dysuria and confusion. Initially had a lactic acidosis, leukocytosis, and septic and placed on empiric IV abx, later found to have e. coli UTI with neg blood cultures, was aggressively IVF resuscitated with initial cr 3.9, now at 1.4, baseline is 1.0 with prior CKD-2, Good UO with improved renal function. PRAVIN Secondary to pre- renal from dehydration, hypoperfusion with possible sepsis-induced component with loss of endothelial tone. There also could be an intr-renal component due to drug-induced from DAISHA-inh as she was on lisinopril as well as htcz and norvasc as well. Would avoid ALL nephrotoxic agents for now, CT abd/pelvis shows no hydronephrosis, no stones and uric acid to follow. No evidence of metabolic acidosis or uremia. Patient was de-escalated to PO keflex Pansensitive e.coli UTI. Would now de-escalate to PO keflex 1g po bid x 2 more days. Sepsis essentially resolved. Her initial volume status was mod-severe dehydration with low BPs and tachy, was stabilized with "early-goal" directed tx. Patient was als o hypothermic but has been afebrile since, all blood cultures are NGTD. Patient w/ hx HTN, vascular dementia with cognitive impairment had evidence of poor mobility, FTT with anorexia. She was clinically depressed, as it relates to her chronic medical conditions as she conveys she has been somewhat bed bound for several weeks now. Would encourage and engage patient to participate with PT. She is feeling better with a much enhanced attitude today after receiving low dose remeron along with megace to stimulate her appetite. Would engage her for continued PT in order for SNF disposition. Her Generalized weakness with associated anorexia as it pertains to her depressive disorder. Continue with m egace plus remeron and optimize nutritional mgmt. Patient to continue with PT/OT at [facility] and medical [facility]. - ALLERGIES Allergies/Adverse Reactions: Allergies Allergy/AdvReac Type Severity Reaction Status Date / Time No Known Drug Allergies Allergy Verified 10/09/18 15:57 - MEDICATIONS Home Medications: Ambulatory Orders Medication Instructions Recorded Confirmed Amlodipine Besylate 10 mg PO DAILY 10/09/18 10/09/18 Aspirin [Adult Aspirin] 81 mg PO DAILY 10/09/18 10/09/18 Acetaminophen [Tylenol] 650 mg PO Q4HR PRN tablet 10/14/18 Albuterol 2.5 mg INH Q4HR PRN neb 10/14/18 Enoxaparin [Lovenox] 30 mg SUBQ DAILY syringe 10/14/18 Famotidine [Pepcid] 10 mg PO BID tablet 10/14/18 Ipratropium [Atrovent] 0.5 mg INH Q6HR PRN neb 10/14/18 Ipratropium/Albuterol [Duoneb] 3 ml INH Q4HR PRN neb 10/14/18 Mirtazapine [Remeron] 7.5 mg PO QPM tablet 10/14/18 Neutra-Phos [K-Phos Neutral] 250 mg PO TIDWM tablet 10/14/18 Polyethylene Glycol 3350 [Miralax] 17 gm PO DAILY packet 10/14/18 Potassium Chloride [K-Dur] 20 meq PO BID tablet 10/14/18 cephALEXin [Keflex] 1,000 mg PO BID 2 Days #16 capsule 10/14/18 guaiFENesin/DEXTROMETHORPHAN 10 ml PO Q6HR PRN udc 10/14/18 [Robitussin Dm] - PHYSICAL EXAM AT DISCHARGE General Appearance: positive: No acute distress, Alert, Other (mild dementia with cognitive impariment ) Eyes Bilateral: positive: Normal inspection, PERRL, EOMI ENT: positive: ENT inspection nml, Pharynx nml, No signs of dehydration Neck: positive: Nml inspection, Thyroid nml, No JVD, Trachea midline Respiratory: positive: Chest non-tender, No respiratory distress, Breath sounds nml Cardiovascular: positive: Regular rate & rhythm, No murmur, No gallop Peripheral Pulses: positive: 2+ Abdomen: positive: Non-tender, No organomegaly, Nml bowel sounds, No distention Skin: positive: Color nml, No rash, Warm Extremities: positive: Non-tender, Full ROM, Nml appearance Neurologic/Psychiatric: positive: Oriented x3, CN's nml (2-12), Depressed m ood/affect - LABS Result Diagrams: 10/11/18 04:50 10/14/18 05:15 - SEPSIS Current Stage of Sepsis: Resolved Possible source of Sepsis: Genitourinary Sepsis Criteria: WBC count greater than 12,000 or less than 4000, ATTACHE: altered consciousness (unrelated to primary neuro pathology) - FOLLOW UP Follow Up: PCP in 2-3 weeks - TIME SPENT Time Spent in Discharge (Minutes): 35
--- NOTE | 2018-10-14 10:57 | Discharge Plan ---
Discharge Plan Disposition: 03 [facility] DC/Xfer Condition: Good Diet: Low Sodium Activity Restrictions: Activity as Tolerated Shower Restrictions: No Driving Restrictions: Yes Assistance Devices: Walker Weight Bearing: Full Weight Instruction Topics: UTI, Depression Counseling, Kidney Disease Find Support Additional Instructions or Follow Up instructions: Pt comfortable with plan and will return if he worsens. Will have pt follow up with PCP for further care or return if pt worsens. Pt comfortable with plan. No Smoking: If you smoke, Please STOP! Call for help. Follow-up with: Moira Naylor DNP [Credentialed Staff Provider] - (F/U in 2-3 weeks )
[2018-10-14 11:19] VITALS: BP 142/86
--- NOTE | 2018-10-14 11:34 | Discharge Plan ---
"Discharge Plan for SNF / [facility] - Discharge Plan And Transition Orders Disposition: 03 SNF DC/Xfer Condition: Good Allergies and Adverse Reactions: Allergies Allergy/AdvReac Type Severity Reaction Status Date / Time No Known Drug Allergies Allergy Verified 10/09/18 15:57 - SNF / [facility] Transition Orders Admit to (Facility): Cash Under the care of (Name): PCP Discharge Diagnosis: (1) Sepsis resolved (2) PRAVIN (acute kidney injury); resolved (3) Hypokalemia; resolved (4) CKD (chronic kidney disease), stage II; stable (5) Hyperglycemia, stable (6) Lactic acidosis, resolved (7) Dehydration, resolved (8) UTI (urinary tract infection); improved (9) Pancreatic cyst; stable (10) Depression (11) FTT with anorexia (12) Generalized Weakness Medicare Certification Statement: I certify that Post Hospital correction care is medically necessary on a continuing basis for any of the conditions for which she/he is receiving care during hospitalization. Notify PCP of admission and forward orders to primary provider for signature. Weight on admission and: Daily Other Notification Orders: Call PCP immediately if patient develops dyspnea, chest pain/tightness or edema. Additional Bowel Program Orders: If no BM after 2 days, nurse may give M.O.M. 30ml PO PRN and/or ducolax Supp 1 [place] and/or JOSE 250mg P.O., and/or senna 1-2 tabs PO. On day 3 nurse may give repeat above order until residents constipation is resolved. Annual Influenza Vaccine (between May 04 and December 01): Yes Two-step PPD per [employer] [id number] or approved exception documents: No Medication Orders: PLEASE REFER TO THE DISCHARGE MEDICATION LIST. Insulin Orders?: No - Diet Type: No added salt Texture: Regular Liquids: Thin May have monthly special meal: Yes - Therapies | Activity Therapy: Evaluation | Treat if indicated: PT, OT Rehabilitation Potential: Maximize functional status, Return to independent living, Maintain present ADL Functional Activity: Activity as Tolerated Weight Bearing: Full Weight Assistance Devices: Walker Additional Instructions: Pt comfortable with plan and will return if he worsens. Will have pt follow up with PCP for further care or return if pt worsens. Pt comfortable with plan. Follow Up: PCP in 2-3 weeks"
== END 2018-10-14 13:45 | DRG 872 ==
LOC: ED 14:21 → ICU 17:19 → UNDOADMIN 17:19 → ICU 10-12 16:23 → MS2 10-12 17:06
PROVIDERS: ADMIT Family Medicine; ATTEND Family Medicine
DX: A41.9 Sepsis, unspecified organism (principal); N30.00 Acute cystitis without hematuria; R41.82 Altered mental status, unspecified; Z79.02 Long term (current) use of antithrombotics/antiplatelets; E11.9 Type 2 diabetes mellitus without complications; J44.9 Chronic obstructive pulmonary disease, unspecified; I10 Essential (primary) hypertension; N17.9 Acute kidney failure, unspecified; E87.2 Acidosis; N28.9 Disorder of kidney and ureter, unspecified; N39.0 Urinary tract infection, site not specified; Z68.41 Body mass index [BMI] 40.0-44.9, adult; K86.2 Cyst of pancreas; E87.6 Hypokalemia; I12.9 Hypertensive chronic kidney disease with stage 1 through stage 4 chronic kidney disease, or unspecified chronic kidney disease; N18.2 Chronic kidney disease, stage 2 (mild); R73.9 Hyperglycemia, unspecified; E86.0 Dehydration; B96.20 Unspecified Escherichia coli [E. coli] as the cause of diseases classified elsewhere; E66.9 Obesity, unspecified; E78.5 Hyperlipidemia, unspecified; F01.50 Vascular dementia, unspecified severity, without behavioral disturbance, psychotic disturbance, mood disturbance, and anxiety; R10.2 Pelvic and perineal pain; R41.0 Disorientation, unspecified; T68.XXXA Hypothermia, initial encounter; R62.7 Adult failure to thrive; R63.0 Anorexia; F32.9 Major depressive disorder, single episode, unspecified; Z74.01 Bed confinement status; Z87.440 Personal history of urinary (tract) infections
CPT/HCPCS: 36415; 51702; 71045; 74176; 80053; 80069; 81001; 81003; 82533; 82570; 83605; 83690; 83735; 84156; 84550; 85025; 85610; 85730; 87040; 87086; 87150; 87181; 87275; 87276; 93005; 94640; 96365; 96368; 99284; 99285

== ENCOUNTER 2021-03-14 10:50 | Outpatient (CLI) | payer MEDICARE | END 2021-03-14 23:59 | disposition home or self-care (01) | LOC: LAB.N 10:50 | PROVIDERS: ATTEND Physician Assistant Medical | DX: R39.9 Unspecified symptoms and signs involving the genitourinary system (principal) | CPT/HCPCS: 87077; 87086; 87181 ==

== ENCOUNTER 2021-03-16 08:00 | Outpatient (CLI) | payer MEDICARE ==
[2021-03-16 18:01] LABS: BASOPHILS # (AUTO) 0.1 10^3/uL (0.0-0.1); BASOPHILS % (AUTO) 1.5 %; EOSINOPHILS # (AUTO) 0.3 10^3/uL (0.0-0.7); EOSINOPHILS % (AUTO) 4.1 %; HCT - HEMATOCRIT 42.1 % (37.0-47.0); HGB - HEMOGLOBIN 13.3 g/dL (12.0-16.0); LYMPHOCYTES # (AUTO) 1.3 10^3/uL (1.5-3.5); LYMPHOCYTES % (AUTO) 15.8 %; MEAN CORPUSCULAR HEMOGLOBIN 29.2 pg (27.0-31.0); MEAN CORPUSCULAR HGB CONC 31.6 g/dL (32.0-36.0); MEAN CORPUSCULAR VOLUME 92.5 fL (81.0-99.0); MEAN PLATELET VOLUME 9.7 fL (7.9-10.8); MONOCYTES # (AUTO) 0.8 10^3/uL (0.0-1.0); NEUTROPHILS # (AUTO) 5.5 10^3/uL (1.5-6.6); NEUTROPHILS % (AUTO) 68.1 %; PLT - PLATELET COUNT 491 10^3/uL (130-450); RED BLOOD COUNT 4.55 10^6/uL (4.20-5.40); RED CELL DISTRIBUTION WIDTH 13.7 % (12.0-15.0)
[2021-03-16 18:12] LABS: ALBUMIN 4.1 g/dL (3.2-5.5); ALBUMIN/GLOBULIN RATIO 1.2 (1.0-2.2); ALKALINE PHOSPHATASE 63 IU/L (42-121); ALT ALANINE AMINOTRANSFERASE 17 IU/L (10-60); AST ASPARTATE AMINOTRANSFERASE 21 IU/L (10-42); BILIRUBIN,TOTAL 1.6 mg/dL (0.2-1.0); BUN - BLOOD UREA NITROGEN 28 mg/dL (6-20); CALCIUM 9.6 mg/dL (8.5-10.3); CARBON DIOXIDE - CO2 25 mmol/L (21-32); CHLORIDE 99 mmol/L (101-111); CHOL/HDL RATIO 5.3 (<4.4); CHOLESTEROL 233 mg/dL; CREATININE 1.5 mg/dL (0.4-1.0); GFR - MDRD 34 (>89); GLUCOSE 93 mg/dL (70-100); HDL CHOLESTEROL 44 mg/dL; LDL CHOLESTEROL,CALCULATED 159 mg/dL; LDL/HDL RATIO 3.6 (<4.4); POTASSIUM 4.6 mmol/L (3.5-5.0); SODIUM 135 mmol/L (135-145); TOTAL PROTEIN 7.6 g/dL (6.7-8.2); TRIGLYCERIDES 150 mg/dL; VLDL CHOLESTEROL 30 mg/dL
== END 2021-03-16 23:59 | disposition home or self-care (01) ==
LOC: LAB.WCP 08:00
PROVIDERS: ATTEND Physician Assistant Medical
DX: I10 Essential (primary) hypertension (principal)
CPT/HCPCS: 36415; 80053; 80061; 83721; 85025

== ENCOUNTER 2021-08-07 09:52 | Outpatient (CLI) | payer MEDICARE, MEDICAID | END 2021-08-07 09:53 | disposition critical access hospital (66) | LOC: EMS 09:52 | DX: R47.81 Slurred speech (principal); R53.1 Weakness | CPT/HCPCS: A0425; A0427 ==

== ENCOUNTER 2021-08-07 10:13 | Inpatient (IN) | payer MEDICARE, MEDICAID ==
[2021-08-07] MEDS ORDERED: SODIUM CHLORIDE 0.9% 1,000 ML IV STA (10:20)
[2021-08-07] MEDS ORDERED: IOVERSOL 320 100 ML VIAL IVP ONE (10:32)
--- NOTE | 2021-08-07 11:01 | CT Report ---
PROCEDURE: HEAD WO INDICATIONS: R facial droop TECHNIQUE: Noncontrast 4.5 mm thick angled axial sections acquired from the foramen magnum to the vertex. For r adiation dose reduction, the following was used: automated exposure control, adjustment of mA and/or kV according to patient size. COMPARISON: None available. FINDINGS: Image quality: There is metallic streak artifact associated with bilateral surgical clips. CSF spaces: There are bilateral surgical clips and possibly embolism coils along the skull base. Bas al cisterns are patent. Ventricles are normal in size. Brain: No definite intracranial hemorrhage or midline shift. Mon-white matter interface appears new ssly preserved. There is a peripherally calcified extra-axial mass or collection along the left skull base in the region of the left cavernous sinus. This measures approximately 3.5 x 1.8 x 2.3 cm. Skull and face: Calvarium and visualized facial bones demonstrate no acute fractures. There are post surgical changes consistent with bilateral temporal craniotomies. Sinuses: Visualized sinuses and mastoids are clear. IMPRESSION: 1. Limited study demonstrates no definite acute intracranial abnormality. 2. Surgical clips and probable aneurysm coils demonstrate along the skull base bilaterally. 3. Extra-axial peripherally calcified mass or collection demonstrated along the left skull base. The findings are nonspecific and may reflect sequelae of prior surgery, meningioma, or possible vascular information. Reviewed by: Shree King MD on 08/07/2021 10:00 AM [facility] Approved by: Shree King MD on 08/07/2021 10:00 AM [facility] Station ID: [id number]
[2021-08-07 11:22] LABS: ALBUMIN/GLOBULIN RATIO 1.1 (1.0-2.2); BILIRUBIN,TOTAL 1.7 mg/dL (0.2-1.0); CALCIUM 9.1 mg/dL (8.5-10.3); CREATININE 1.9 mg/dL (0.4-1.0); POTASSIUM 4.8 mmol/L (3.5-5.0); TOTAL PROTEIN 7.6 g/dL (6.7-8.2)
[2021-08-07 11:27] LABS: BASOPHILS # (AUTO) 0.1 10^3/uL (0.0-0.1); BASOPHILS % (AUTO) 0.7 %; EOSINOPHILS % (AUTO) 0.1 %; HCT - HEMATOCRIT 42.1 % (37.0-47.0); HGB - HEMOGLOBIN 13.7 g/dL (12.0-16.0); LYMPHOCYTES % (AUTO) 6.8 %; MEAN CORPUSCULAR HGB CONC 32.5 g/dL (32.0-36.0); MEAN CORPUSCULAR VOLUME 92.3 fL (81.0-99.0); MONOCYTES # (AUTO) 1.5 10^3/uL (0.0-1.0); MONOCYTES % (AUTO) 9.9 %; NEUTROPHILS # (AUTO) 12.5 10^3/uL (1.5-6.6); PLT - PLATELET COUNT 455 10^3/uL (130-450); RED BLOOD COUNT 4.56 10^6/uL (4.20-5.40); RED CELL DISTRIBUTION WIDTH 13.7 % (12.0-15.0); WHITE BLOOD COUNT 15.2 x10^3/uL (4.8-10.8)
--- NOTE | 2021-08-07 12:01 | XRAY Report ---
PROCEDURE: Chest 1 View X-Ray INDICATIONS: chest pain TECHNIQUE: One view of the chest was acquired. COMPARISON: 10/05/2018. FINDINGS: Surgical changes and devices: None. Lungs and pleura: No pleural effusions or pneumothorax. Lungs are clear. Mediastinum: Mediastinal contours appear unchanged. Heart size is borderline enlarged. Bones and chest wall: No suspicious bony lesions. Overlying soft tissues appear unremarkable. IMPRESSION: 1. No acute cardiopulmonary disease. Reviewed by: Shree King MD on 08/07/2021 11:[address] [facility] Approved by: Shree King MD on 08/07/2021 11:[address] [facility] Station ID: [id number]
[2021-08-07 12:17] LABS: BILIRUBIN,URINE NEGATIVE (NEGATIVE); GLUCOSE, URINE (UA) NEGATIVE (NEGATIVE); KETONES,URINE (UA) TRACE mg/dL (NEGATIVE); LEUKOCYTE ESTERASE, URINE LARGE (NEGATIVE); NITRITE,URINE NEGATIVE (NEGATIVE); OCCULT BLOOD,URINE MODERATE (NEGATIVE); PH,URINE 8.5 PH (5.0-7.5); PROTEIN,URINE 100 mg/dL (NEGATIVE); UROBILINOGEN,URINE 0.2 (NORMAL) E.U./dL (NORMAL)
[2021-08-07 12:22] LABS: CLARITY,URINE CLOUDY (CLEAR)
[2021-08-07 12:28] LABS: WBC,URINE >25 /HPF (0-5)
[2021-08-07 12:29] LABS: BACTERIA,URINE Moderate /HPF (None Seen); SQUAMOUS EPITHELIAL CELL,UR FEW Squamous (<= Few)
[2021-08-07] MEDS ORDERED: cefTRIAXone 2 GM in SODIUM CHLORIDE 0.9% MINIBAG 100 ML IV STA (13:20)
--- NOTE | 2021-08-07 13:22 | ED Physician Documentation ---
History of Present Illness - Stated complaint Stated Complaint: R SIDE WEAKNESS - Chief complaint Chief Complaint: Neuro - History obtained from History obtained from: Patient, EMS - Additonal information Additional information: Patient comes emergency department chief complaint of weakness. Patient states that a few days ago, she began to notice that she was weak but especially on the right side. The patient has a history of aneurysms and repair, and has chronic left face weakness. She states that she was unable to walk because of the onset of weakness and became incontinent of urine in her bed. She lives by herself and relies she needed help, so she was able to roll out of bed and then scoot to the front porch. Is not clear exactly how long she stayed there, but finally a neighbor found her and called 911 and patient was brought here. The patient denies any chest pain or shortness of breath. No fevers or chills. No cough. She states that she has not had a headache or neck pain. She does not feel she was injured rolling out of the bed. No new visual changes. No new dysarthria. No other complaints at this time. Review of Systems Ten Systems: 10 systems reviewed and negative Constitutional: reports: Reviewed and negative Eyes: reports: Reviewed and negative Ears: reports: Reviewed and negative Nose: reports: Reviewed and negative Throat: reports: Reviewed and negative Cardiac: reports: Reviewed and negative Respiratory: reports: Reviewed and negative GI: reports: Reviewed and negative : reports: Reviewed and negative Skin: reports: Reviewed and negative Musculoskeletal: reports: Reviewed and negative Neurologic: reports: Generalized weakness, Focal weakness, Difficulty speaking (Chronic) Psychiatric: reports: Reviewed and negative Endocrine: reports: Reviewed and negative Immunocompromised: reports: Reviewed and negative PD PAST MEDICAL HISTORY - Past Medical History Cardiovascular: Hypertension Respiratory: None Neuro: Other Endocrine/Autoimmune: None GI: None Musculoskeletal: None - Past Surgical History Ortho: Arthroscopic surgery - Present Medications Home Medications: Ambulatory Orders Medication Instructions Recorded Confirmed Amlodipine Besylate 10 mg PO DAILY 10/09/18 08/07/21 lisinopriL [Lisinopril] 40 mg PO DAILY 08/07/21 08/07/21 Acetaminophen [Tylenol] 650 mg PO Q4HR PRN tablet 08/10/21 Acetaminophen/Cod 300/30 [Tylenol 1 tab PO Q4HR PRN #30 tablet 08/10/21 #3] Aspirin EC [Ecotrin] 81 mg PO DAILY tablet 08/10/21 Atorvastatin [Lipitor] 40 mg PO QPM tablet 08/10/21 Cefdinir 300 mg PO BID #8 cap 08/10/21 - Allergies Allergies/Adverse Reactions: Allergies Allergy/AdvReac Type Severity Reaction Status Date / Time No Known Drug Allergies Allergy Verified 10/09/18 15:57 - Social History Smoking Status: Never smoker PD ED PE NORMAL - Vitals Vital signs reviewed: Yes - General General: Alert and oriented X 3, No acute distress, Well developed/nourished, Other (Patient is disheveled and smells of urine) - HEENT HEENT: Atraumatic, PERRL, EOMI, Moist mucous membranes - Neck Neck: Supple, no meningeal sign, No bony TTP - Cardiac Cardiac: RRR, No murmur, Strong equal pulses - Respiratory Respiratory: No respiratory distress, Clear bilaterally - Abdomen Abdomen: Soft, Non tender, Other (Obese) - Back Back: No spinal TTP - Derm Derm: Normal color, Warm and dry, No rash - Extremities Extremities: No deformity, No edema, No calf tenderness / cord - Neuro Neuro: Alert and oriented X 3, Other (Speech is unclear, but words are appropriate. Brisk, 5+ strength upper and lower left extremities, with slow, 5 - strength in right upper and lower extremities. No appreciable right facial droop.) - Psych Psych: Normal mood, Normal affect Results - Vitals Vitals: Oxygen O2 Source [With Activity] Room air O2 Source Room air - EKG (time done) 1105 Rate: Rate (enter#) (86) Rhythm: NSR [place]: Normal Intervals: Normal VT QRS: Normal Ischemia: Normal ST segments, Other (Lateral biphasic T waves) Compare to prior EKG: Old EKG unavailable Computer interpretation: Agree with computer - Labs Labs: Microbiology 08/07/21 12:09 Urine Culture - Final Urine,Clean Catch Proteus Mirabilis Laboratory Tests 08/07/21 08/07/21 08/07/21 11:00 11:00 11:00 WBC 15.2 H RBC 4.56 Hgb 13.7 Hct 42.1 MCV 92.3 MCH 30.0 MCHC 32.5 RDW 13.7 Plt Count 455 H MPV 10.0 Neut # (Auto) 12.5 H Lymph # (Auto) 1.0 L [place] # (Auto) 1.5 H Eos # (Auto) 0.0 Baso # (Auto) 0.1 Absolute Nucleated RBC 0.00 Nucleated RBC % 0.0 PT INR Sodium 138 Potassium 4.8 Chloride 104 Carbon Dioxide 21 Anion Gap 13.0 BUN 49 H Creatinine 1.9 H Estimated GFR (MDRD) 26 L Glucose 104 H Lactic Acid Calcium 9.1 Total Bilirubin 1.7 H AST 88 H ALT 42 Alkaline Phosphatase 73 Total Creatine Kinase 2671 H* Total Protein 7.6 Albumin 4.0 Globulin 3.6 Albumin/Globulin Ratio 1.1 Lipase 20 L Urine Color Urine Clarity Urine pH Ur Specific [place] Urine Protein Urine Glucose (UA) Urine Ketones Urine Occult Blood Urine Nitrite Urine Bilirubin Urine Urobilinogen Ur Leukocyte Esterase Urine RBC Urine WBC Ur Squamous Epith Cells Urine Crystals Urine Bacteria Ur Microscopic Review Urine Culture Comments Nasal Adenovirus (PCR) Nasal B. parapertussis DNA (PCR) Nasal Coronavir 229E PCR Nasal Coronavir HKU1 PCR Nasal Coronavir NL63 PCR Nasal Coronavir OC43 PCR Nasal Enterovir/Rhinovir PCR Nasal Influenza B PCR Nasal Influenza A PCR Nasal Parainfluen 1 PCR Nasal Parainfluen 2 PCR Nasal Parainfluen 3 PCR Nasal Parainfluen 4 PCR Nasal RSV (PCR) Nasal B.pertussis DNA PCR Nasal C.pneumoniae (PCR) Osbal[place] Human Metapneumo PCR Nasal M.pneumoniae (PCR) Nasal SARS-CoV-2 (PCR) 08/07/21 08/07/21 08/07/21 11:37 12:09 13:31 WBC RBC Hgb Hct MCV MCH MCHC RDW Plt Count MPV Neut # (Auto) Lymph # (Auto) [place] # (Auto) Eos # (Auto) Baso # (Auto) Absolute Nucleated RBC Nucleated RBC % PT INR Sodium Potassium Chloride Carbon Dioxide Anion Gap BUN Creatinine Estimated GFR (MDRD) Glucose Lactic Acid 2.4 H Calcium Total Bilirubin AST ALT Alkaline Phosphatase Total Creatine Kinase Total Protein Albumin Globulin Albumin/Globulin Ratio Lipase Urine Color YELLOW Urine Clarity CLOUDY Urine pH 8.5 H Ur Specific [place] 1.015 Urine Protein 100 H Urine Glucose (UA) NEGATIVE Urine Ketones TRACE Urine Occult Blood MODERATE H Urine Nitrite NEGATIVE Urine Bilirubin NEGATIVE Urine Urobilinogen 0.2 (NORMAL) Ur Leukocyte Esterase LARGE H Urine RBC 6-10 H Urine WBC >25 H Ur Squamous Epith Cells FEW Squamous Urine Crystals 0-2 Triple Phosphate Urine Bacteria Moderate H Ur Microscopic Review INDICATED Urine Culture Comments INDICATED Nasal Adenovirus (PCR) NOT DETECTED Nasal B. parapertussis DNA (PCR) NOT DETECTED Nasal Coronavir 229E PCR NOT DETECTED Nasal Coronavir HKU1 PCR NOT DETECTED Nasal Coronavir NL63 PCR NOT DETECTED Nasal Coronavir OC43 PCR NOT DETECTED Nasal Enterovir/Rhinovir PCR NOT DETECTED Nasal Influenza B PCR NOT DETECTED Nasal Influenza A PCR NOT DETECTED Nasal Parainfluen 1 PCR NOT DETECTED Nasal Parainfluen 2 PCR NOT DETECTED Nasal Parainfluen 3 PCR NOT DETECTED Nasal Parainfluen 4 PCR NOT DETECTED Nasal RSV (PCR) NOT DETECTED Nasal B.pertussis DNA PCR NOT DETECTED Nasal C.pneumoniae (PCR) NOT DETECTED Osbaldo Human Metapneumo PCR NOT DETECTED Nasal M.pneumoniae (PCR) NOT DETECTED Nasal SARS-CoV-2 (PCR) NOT DETECTED 08/07/21 13:34 WBC RBC Hgb Hct MCV MCH MCHC RDW Plt Count MPV Neut # (Auto) Lymph # (Auto) [place] # (Auto) Eos # (Auto) Baso # (Auto) Absolute Nucleated RBC Nucleated RBC % PT 14.4 H INR 1.3 H Sodium Potassium Chloride Carbon Dioxide Anion Gap BUN Creatinine Estimated GFR (MDRD) Glucose Lactic Acid Calcium Total Bilirubin AST ALT Alkaline Phosphatase Total Creatine Kinase Total Protein Albumin Globulin Albumin/Globulin Ratio Lipase Urine Color Urine Clarity Urine pH Ur Specific [place] Urine Protein Urine Glucose (UA) Urine Ketones Urine Occult Blood Urine Nitrite Urine Bilirubin Urine Urobilinogen Ur Leukocyte Esterase Urine RBC Urine WBC Ur Squamous Epith Cells Urine Crystals Urine Bacteria Ur Microscopic Review Urine Culture Comments Nasal Adenovirus (PCR) Nasal B. parapertussis DNA (PCR) Nasal Coronavir 229E PCR Nasal Coronavir HKU1 PCR Nasal Coronavir NL63 PCR Nasal Coronavir OC43 PCR Nasal Enterovir/Rhinovir PCR Nasal Influenza B PCR Nasal Influenza A PCR Nasal Parainfluen 1 PCR Nasal Parainfluen 2 PCR Nasal Parainfluen 3 PCR Nasal Parainfluen 4 PCR Nasal RSV (PCR) Nasal B.pertussis DNA PCR Nasal C.pneumoniae (PCR) [place] Human Metapneumo PCR Nasal M.pneumoniae (PCR) Nasal SARS-CoV-2 (PCR) - Rads (name of study) Chest x-ray Radiology: Final report received, EMP read indepedently, See rad report (Negative) CT head Radiology: Final report received, EMP read indepedently, See rad report (No acute disease; coils and clips consistent with aneurysm history; calcified masslike structure adjacent to left skull base) PD MEDICAL DECISION MAKING - ED course Complexity details: reviewed results, re-evaluated patient, considered differential, d/w patient ED course: The patient was given IV fluids and worked up broadly with labs, CT, and EKG. She was not found to have any acute findings on head CT. The patient did have some renal insufficiency which she has had for some time. Her CK was elevated, raising concern for rhabdomyolysis especially in the setting of the patient having been unable to be on her feet over the last several days. I felt the patient should be admitted to the hospital for her probable stroke, plus rhabdomyolysis, And I spoke with Dr. Tania brewster, who Agreed to the patient to her service. Departure - Departure Disposition: 66 [facility] DC/Xfer Clinical Impression: Dehydration Stroke Qualifiers: CVA mechanism: unspecified Qualified Code(s): I63.9 - Cerebral infarction, unspecified UTI (urinary tract infection) Qualifiers: Urinary tract infection type: acute cystitis Hematuria presence: with hematuria Qualified Code(s): N30.01 - Acute cystitis with hematuria Rhabdomyolysis Qualifiers: Qualified Code(s): M62.82 - Rhabdomyolysis Condition: Stable Discharge Date/Time: 08/07/21 15:06
[2021-08-07] MEDS ORDERED: cefTRIAXone 2 GM VIAL ONE (13:33)
[2021-08-07 13:51] LABS: INR 1.3 (0.8-1.2); PT - PROTHROMBIN TIME 14.4 secs (9.9-12.6)
[2021-08-07] MEDS ORDERED: SODIUM CHLORIDE FLUSH 0.9% 10 ML SYRINGE IVP PRN (14:10)
[2021-08-07] MEDS ORDERED: ONDANSETRON 4 MG/2 ML VIAL IVP PRN (14:10)
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
--- NOTE | 2021-08-07 14:35 | PHARMACY PROGRESS NOTE ---
- Best Possible Medication History Admit Date and Time: Patient in ED Processed by: Pharmacy Medication History completed: Yes Patient Interview: Pt unable to participate Secondary Source(s): Physician records, Pharmacy records, Insurance records As the person ultimately responsible for medication therapy, providers are able to order a medication from an existing home medication list in [facility] via the "Reconcile Routine" prior to Confirmation of that medication by academic support assistant. Such practice is discouraged except when the physician, in their clinical judgment, deems that a medical need exists for a medication without regard to previous use.
[2021-08-07 14:56] LABS: B. PARAPERTUSSIS- RESP PCR PAN NOT DETECTED; B. PERTUSSIS- RESP PCR PANEL NOT DETECTED; C. PNEUMONIAE- RESP PCR PANEL NOT DETECTED; CORONAVIRUS 229E-RESP PCR NOT DETECTED; CORONAVIRUS HKU1-RESP PCR NOT DETECTED; CORONAVIRUS NL63-RESP PCR NOT DETECTED; CORONAVIRUS OC43-RESP PCR NOT DETECTED; HUMAN METAPNEUMOVIRUS NOT DETECTED; INFLUENZA A- RESP PCR PANEL NOT DETECTED; INFLUENZA B - RESP PCR PANEL NOT DETECTED; M. PNEUMONIAE- RESP PCR PANEL NOT DETECTED; PARAINFLUENZA VIRUS 1 NOT DETECTED; PARAINFLUENZA VIRUS 2 NOT DETECTED; PARAINFLUENZA VIRUS 3 NOT DETECTED; PARAINFLUENZA VIRUS 4 NOT DETECTED; RHINOVIRUS/ENTEROVIRUS NOT DETECTED; RSV- RESP PCR PANEL NOT DETECTED; SARS-CoV-2 -RESP PCR PANEL NOT DETECTED
[2021-08-07] MEDS: SODIUM CHLORIDE FLUSH 0.9% 10 ML SYRINGE IVP SCH ×2 (15:33→23:45)
[2021-08-07] MEDS: DEXTROSE 5%-0.9% NACL 1,000 ML IV SCH (15:33)
[2021-08-07] MEDS ORDERED: ASPIRIN CHEW 81 MG TABLET PO STA (16:31)
[2021-08-07] MEDS: ATORVASTATIN 40 MG TABLET PO SCH (20:08)
[2021-08-08] MEDS: DEXTROSE 5%-0.9% NACL 1,000 ML IV SCH ×2 (02:02→15:49)
[2021-08-08] MEDS: ACETAMINOPHEN 325 MG TABLET PO PRN ×3 (02:18→10:45)
[2021-08-08 06:08] LABS: BUN - BLOOD UREA NITROGEN 40 mg/dL (6-20); CALCIUM 8.6 mg/dL (8.5-10.3); CARBON DIOXIDE - CO2 19 mmol/L (21-32); CHLORIDE 107 mmol/L (101-111); CHOL/HDL RATIO 3.5 (<4.4); CHOLESTEROL 161 mg/dL; CREATININE 1.5 mg/dL (0.4-1.0); GFR - MDRD 34 (>89); GLUCOSE 114 mg/dL (70-100); HDL CHOLESTEROL 46 mg/dL; LDL CHOLESTEROL,CALCULATED 99 mg/dL; LDL/HDL RATIO 2.2 (<4.4); POTASSIUM 3.7 mmol/L (3.5-5.0); SODIUM 137 mmol/L (135-145); TRIGLYCERIDES 80 mg/dL; VLDL CHOLESTEROL 16 mg/dL
[2021-08-08 06:11] LABS: CK- CREATINE KINASE 1542 IU/L (22-269)
[2021-08-08 06:19] LABS: BASOPHILS % (AUTO) 0.8 %; EOSINOPHILS % (AUTO) 2.3 %; HCT - HEMATOCRIT 37.7 % (37.0-47.0); HGB - HEMOGLOBIN 12.2 g/dL (12.0-16.0); LYMPHOCYTES % (AUTO) 15.2 %; MEAN CORPUSCULAR HEMOGLOBIN 29.9 pg (27.0-31.0); MEAN CORPUSCULAR HGB CONC 32.4 g/dL (32.0-36.0); MEAN CORPUSCULAR VOLUME 92.4 fL (81.0-99.0); MEAN PLATELET VOLUME 8.9 fL (7.9-10.8); MONOCYTES % (AUTO) 13.1 %; NEUTROPHILS % (AUTO) 68.3 %; PLT - PLATELET COUNT 414 10^3/uL (130-450); RED BLOOD COUNT 4.08 10^6/uL (4.20-5.40); RED CELL DISTRIBUTION WIDTH 13.7 % (12.0-15.0); WHITE BLOOD COUNT 12.2 x10^3/uL (4.8-10.8)
[2021-08-08 06:21] LABS: ABNORMAL LYMPHS % (MANUAL) 0 %; BAND NEUTROPHILS % (MANUAL) 0 %
[2021-08-08 06:31] LABS: EOSINOPHILS # (MANUAL) 0.2 10^3/uL (0-0.7); LYMPHOCYTES # (MANUAL) 1.8 10^3/uL (1.5-3.5); LYMPHOCYTES % (MANUAL) 15 %; MONOCYTES # (MANUAL) 1.5 10^3/uL (0.0-1.0); NEUTROPHILS # (MANUAL) 8.7 10^3/uL (1.5-6.6)
[2021-08-08 06:32] LABS: DIFFERENTIAL COMMENT MANUAL DIFFERENTIAL; PLATELET ESTIMATE, MANUAL NORMAL (130-450,000) (NORMAL); PLATELET MORPHOLOGY NORMAL APPEARANCE (NORMAL); RBC MORPHOLOGY (MULTIPLE) NORMAL APPEARANCE (NORMAL); WBC MORPHOLOGY (MULTIPLE) NORMAL APPEARANCE (NORMAL)
[2021-08-08] MEDS: polyethylene glycoL 3350 17 GM PACKET PO SCH (09:01)
[2021-08-08] MEDS: ASPIRIN EC 81 MG TABLET PO SCH (09:01)
[2021-08-08] MEDS: SODIUM CHLORIDE FLUSH 0.9% 10 ML SYRINGE IVP SCH ×2 (09:02→15:52)
[2021-08-08] MEDS: cefTRIAXone 1 GM in SODIUM CHLORIDE 0.9% MINIBAG 100 ML IV SCH (09:02)
[2021-08-08] MEDS ORDERED: IOVERSOL 320 100 ML VIAL IVP ONE ×2 (09:50→11:32)
--- NOTE | 2021-08-08 11:58 | PROVIDER PROGRESS NOTE ---
Assessment/Plan - Problem List (1) Stroke Qualifiers: CVA mechanism: unspecified Qualified Code(s): I63.9 - Cerebral infarction, unspecified Assessment/Plan: Her right arm and right leg weakness are unchanged since admission consistent with a completed stroke. She underwent repeat brain imaging today (with contrast, to image vasculature as well as brain parenchyma). I discussed the findings with Radiologist. 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 The brain parenchyma had many artifacts from the metal clips so could not define the area of stroke. A brain MRI is needed, if she has MRI-compatible brain clips . Her Echo showed a bi-directional PFO is present. Will order a brain MRI, and get details about her brain clips. Continue on telemetry. Continue with daily aspirin. Her fasting lipids showed LDL of 80. Goal is < 70. Continue statin. Begin PT and OT (after the new right groin pain is addressed, see below). She will likely need PT and OT for stroke rehab. Social Work was told that she cannot go back to living alone without caregivers after SNF. She will need determination (by Neurology and/or Cardiology) if the PFO needs closure. 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 Theoretically this could have broken off to produce ischemia in the distal vessel. Continue with aspirin daily. She is not a candidate for anticoagulation because of the acute stroke, to not turn it into hemorrhagic stroke. We will hopefully obtain a brain MRI to locate the area of cerebral ischemic stroke. (3) Patent foramen ovale Assessment/Plan: She will need determination (by Neurology and/or Cardiology) if the PFO needs closure. (4) Severe right groin pain Assessment/Plan: This was not a complaint at the time of admission, last evening. She did suffer a fall though several days ago, therefore we need to evaluate for trauma. She underwent x-ray of the right hip and pelvis which was not definitive to rule out a fracture. This was discussed with the radiologist today. A CT of the right pelvic and hip area will be ordered. She cannot start walking with PT until a fracture or dislocation is ruled out. Will order medications for pain control (5) Rhabdomyolysis Qualifiers: Qualified Code(s): M62.82 - Rhabdomyolysis Assessment/Plan: She laid on the ground for 2-1/2 days before a neighbor found her to call an ambulance. Her CK of 2600 has decreased to 1500 with IV saline. Avoid nephrotoxins. Follow CK till normalized and BMP daily. (6) UTI (urinary tract infection) Qualifiers: Urinary tract infection type: acute cystitis Hematuria presence: with hematuria Qualified Code(s): N30.01 - Acute cystitis with hematuria Assessment/Plan: Gross hematuria was seen on her urinalysis and she had greater than 25 WBCs consistent with UA. She is on empiric IV ceftriaxone. Await urine culture results and one blood culture was done, to tailor antibiotics. (7) PRAVIN (acute kidney injury) Assessment/Plan: Likely from dehydration plus rhabdomyolysis. She is getting IV fluids. Urine/creatinine has improved slightly. Avoid nephrotoxins Follow BMP daily. (8) Dehydration Assessment/Plan: Improving clinically, she is getting IV fluids for rehydration and able to take liquids orally (9) Abnormal EKG Assessment/Plan: The troponins were elevated but flat, ruling out an acute coronary event. The resting Echo showed no regional LV wall motion abnormalities. (10) HTN (hypertension) Assessment/Plan: She only took lisinopril and amlodipine at home. These are on hold because she has a normal blood pressure. (11) H/O brain surgery Assessment/Plan: Details of when this occurred are not known. 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 (12) Obesity (BMI 30-39.9) Assessment/Plan: As per Hx (13) Vascular dementia without behavioral disturbance Assessment/Plan: As per Hx. - Current Meds Current Meds: Current Medications Generic Name Dose Route Start Last Admin Trade Name Freq PRN Reason Stop Dose Admin Acetaminophen 650 mg 08/07/21 14:10 08/08/21 10:45 Acetaminophen 325 Mg Tablet PO 650 mg Q4HR PRN Administration Pain or Fever > 38C (100.4F) Aspirin 81 mg 08/08/21 09:00 08/08/21 09:01 Aspirin Ec 81 Mg Tablet PO 81 mg DAILY YESICA Administration Atorvastatin Calcium 40 mg 08/07/21 21:00 08/07/21 20:08 Atorvastatin 40 Mg Tablet PO 40 mg QPM YESICA Administration Dextrose/Sodium Chloride 1,000 mls @ 100 mls/hr 08/07/21 16:30 08/08/21 02:02 D5ns IV 100 mls/hr .Q10H YESICA Administration Ceftriaxone Sodium 1 gm/ 100 mls @ 200 mls/hr 08/08/21 09:00 08/08/21 09:02 Sodium Chloride IV 200 mls/hr DAILY YESICA Infusion Polyethylene Glycol 17 gm 08/08/21 09:00 08/08/21 09:01 Polyethylene Glycol 3350 17 Gm Packet PO 17 gm DAILY YESICA Administration Sodium Chloride 10 ml 08/07/21 17:00 08/08/21 09:02 Sodium Chloride Flush 0.9% 10 Ml Syringe IVP 10 ml 0100,0900,1700 YESICA Administration - Lab Result Fish Bone Diagrams: 08/08/21 06:00 08/08/21 05:15 - Additional Planning My Orders: My Active Orders 08/07/21 14:10 Activity Orders [RC] Q2HR IO [RC] IOSHIFT Initiate Bowel Care Protocol [RC] .protocol Initiate Line Care Protocol [RC] QSHIFT Initiate Personal Care Protoco [RC] .protocol Oxygen Therapy [RC] .PRN Telemetry- [RC] Q4HR Vital Signs [RC] Q4HR Acetaminophen [Tylenol] 650 mg PO Q4HR PRN Ondansetron Inj [Zofran Inj] 4 mg IVP Q6HR PRN Sodium Chloride Flush 0.9% [Normal Saline Flush 0.9%] 10 ml IVP PRN PRN Code Status [OTHERS] Routine Condition of Patient [OTHERS] Routine DVT Prophylaxis [OTHERS] Routine 08/07/21 14:12 IV Insert [RC] .ONCE 08/07/21 14:13 Initiate Line Care Protocol [RC] QSHIFT RACHAEL Nunez [RC] QSHIFT Evaluate and Treat OT [OT] Routine Evaluate and Treat PT [PT] Routine 08/07/21 14:14 Neuro Check [RC] Q4HR 08/07/21 14:18 Orthostatic [Vital Signs - Orthostatic] [RC] DAILY 08/07/21 Dinner Soft Mechanical Diet [DIET] 08/07/21 16:30 Dextrose 5%-0.9% NaCl [D5ns] 1,000 ml IV 100 mls/hr 08/07/21 16:55 CULTURE, BLOOD #1 [RM] Stat 08/07/21 17:00 Sodium Chloride Flush 0.9% [Normal Saline Flush 0.9%] 10 ml IVP 0100,0900,1700 08/07/21 21:00 Atorvastatin [Lipitor] 40 mg PO QPM 08/08/21 08:00 ANGIO HEAD W/WO [CT] Routine ANGIO NECK W [CT] Routine Echo Complete w/Bubble Study [ECHO] Routine 08/08/21 09:00 Aspirin EC [Ecotrin] 81 mg PO DAILY cefTRIAXone [Rocephin] 1 gm Sodium Chloride 0.9% Minibag [Normal Saline 0.9% Minibag] 100 ml IV DAILY 08/08/21 11:47 Hip w/Pelvis 2-3V RT [XR] Stat 08/09/21 05:00 BMP - BASIC METABOLIC PANEL [CHEM] DAILYLAB CBC - COMP BLD CT W/AUTO DIFF [HEME] DAILYLAB CK- CREATINE KINASE [CHEM] DAILYLAB 08/10/21 05:00 BMP - BASIC METABOLIC PANEL [CHEM] DAILYLAB CBC - COMP BLD CT W/AUTO DIFF [HEME] DAILYLAB CK- CREATINE KINASE [CHEM] DAILYLAB 08/11/21 05:00 BMP - BASIC METABOLIC PANEL [CHEM] DAILYLAB CBC - COMP BLD CT W/AUTO DIFF [HEME] DAILYLAB Subjective - Subjective Patient Reports: Pain (She complains of pain in the right groin area at 10/10 and constant. Tylenol and ice packs or warm packs are not helping.) Objective Vital Signs: Vital Signs - 24 hr 08/07/21 08/07/21 08/07/21 12:00 12:30 13:00 Temperature Heart Rate 90 75 88 Heart Rate [ Monitoring electrodes] Respiratory 17 14 17 Rate Blood Pressure 131/83 H 148/86 H 138/84 H Blood Pressure [Right Brachial artery] O2 Saturation 99 97 99 08/07/21 08/07/21 08/07/21 14:32 15:04 16:17 Temperature 36.7 C 36.7 C Heart Rate 87 89 Heart Rate [ 89 Monitoring electrodes] Respiratory 15 19 16 Rate Blood Pressure 142/99 H Blood Pressure 139/84 H [Right Brachial artery] O2 Saturation 100 98 98 08/07/21 08/07/21 08/08/21 20:17 23:45 04:00 Temperature 37.1 C 36.9 C 36.9 C Heart Rate Heart Rate [ 89 77 78 Monitoring electrodes] Respiratory 19 16 18 Rate Blood Pressure Blood Pressure 122/70 128/71 113/76 [Right Brachial artery] O2 Saturation 97 97 96 08/08/21 08/08/21 07:09 11:13 Temperature 36.3 C L 36.9 C Heart Rate Heart Rate [ 71 77 Monitoring electrodes] Respiratory 17 18 Rate Blood Pressure Blood Pressure 119/69 147/80 H [Right Brachial artery] O2 Saturation 100 94 Oxygen O2 Source [With Activity] Room air O2 Source Room air I&O (Last 24 Hrs): Intake and Output Totals x24h 08/06/21 08/07/21 08/08/21 23:59 23:59 23:59 Intake Total 1100 1150 Output Total 200 100 Balance 900 1050 General: Alert HEENT: Other (L eyelid closed) Neck: Supple Neuro: Other (R arm, R leg) Cardiovascular: Regular rate, No murmurs Respiratory: No respiratory distress, Breath sounds nml Abdomen: Normal bowel sounds, Soft Extremities: Other (Trace pretibial) - Results Results: Laboratory Results WBC 12.2 x10^3/uL (4.8-10.8) H 08/08/21 06:00 RBC 4.08 10^6/uL (4.20-5.40) L 08/08/21 06:00 Hgb 12.2 g/dL (12.0-16.0) 08/08/21 06:00 Hct 37.7 % (37.0-47.0) 08/08/21 06:00 MCV 92.4 fL (81.0-99.0) 08/08/21 06:00 MCH 29.9 pg (27.0-31.0) 08/08/21 06:00 MCHC 32.4 g/dL (32.0-36.0) 08/08/21 06:00 RDW 13.7 % (12.0-15.0) 08/08/21 06:00 Plt Count 414 10^3/uL (130-450) 08/08/21 06:00 MPV 8.9 fL (7.9-10.8) 08/08/21 06:00 Neut # (Auto) Not Reportable 08/08/21 06:00 Lymph # (Auto) Not Reportable 08/08/21 06:00 [place] # (Auto) Not Reportable 08/08/21 06:00 Eos # (Auto) Not Reportable 08/08/21 06:00 Baso # (Auto) Not Reportable 08/08/21 06:00 Absolute Nucleated RBC Not Reportable 08/08/21 06:00 Total Counted 100 08/08/21 06:00 Band Neuts % (Manual) 0 % (0-10) 08/08/21 06:00 Abnorm Lymph % (Manual) 0 % 08/08/21 06:00 Nucleated RBC % Not Reportable 08/08/21 06:00 Neutrophils # (Manual) 8.7 10^3/uL (1.5-6.6) H 08/08/21 06:00 Lymphocytes # (Manual) 1.8 10^3/uL (1.5-3.5) 08/08/21 06:00 Monocytes # (Manual) 1.5 10^3/uL (0.0-1.0) H 08/08/21 06:00 Eosinophils # (Manual) 0.2 10^3/uL (0-0.7) 08/08/21 06:00 Basophils # (Manual) 0.0 10^3/uL (0-0.1) 08/08/21 06:00 Differential Comment MANUAL DIFFERENTIAL 08/08/21 06:00 WBC Morphology NORMAL APPEARANCE (NORMAL) 08/08/21 06:00 Platelet Estimate NORMAL (130-450,000) (NORMAL) 08/08/21 06:00 Platelet Morphology NORMAL APPEARANCE (NORMAL) 08/08/21 06:00 RBC Morph Micro Appear NORMAL APPEARANCE (NORMAL) 08/08/21 06:00 PT 14.4 secs (9.9-12.6) H 08/07/21 13:34 INR 1.3 (0.8-1.2) H 08/07/21 13:34 Sodium 137 mmol/L (135-145) 08/08/21 05:15 Potassium 3.7 mmol/L (3.5-5.0) 08/08/21 05:15 Chloride 107 mmol/L (101-111) 08/08/21 05:15 Carbon Dioxide 19 mmol/L (21-32) L 08/08/21 05:15 Anion Gap 11.0 (6-13) 08/08/21 05:15 BUN 40 mg/dL (6-20) H 08/08/21 05:15 Creatinine 1.5 mg/dL (0.4-1.0) H 08/08/21 05:15 Estimated GFR (MDRD) 34 (>89) L 08/08/21 05:15 Glucose 114 mg/dL (70-100) H 08/08/21 05:15 Lactic Acid 2.4 mmol/L (0.5-2.2) H 08/07/21 11:37 Calcium 8.6 mg/dL (8.5-10.3) 08/08/21 05:15 Total Bilirubin 1.7 mg/dL (0.2-1.0) H 08/07/21 11:00 AST 88 IU/L (10-42) H 08/07/21 11:00 ALT 42 IU/L (10-60) 08/07/21 11:00 Alkaline Phosphatase 73 IU/L (42-121) 08/07/21 11:00 Total Creatine Kinase 1542 IU/L (22-269) H* 08/08/21 05:15 Troponin I High Sens 431.8 ng/L (2.3-14.8) H* 08/07/21 23:58 Total Protein 7.6 g/dL (6.7-8.2) 08/07/21 11:00 Albumin 4.0 g/dL (3.2-5.5) 08/07/21 11:00 Globulin 3.6 g/dL (2.1-4.2) 08/07/21 11:00 Albumin/Globulin Ratio 1.1 (1.0-2.2) 08/07/21 11:00 Triglycerides 80 mg/dL (-149) 08/08/21 05:15 Cholesterol 161 mg/dL (-199) 08/08/21 05:15 LDL Cholesterol, Calc 99 mg/dL (-129) 08/08/21 05:15 VLDL Cholesterol 16 mg/dL 08/08/21 05:15 HDL Cholesterol 46 mg/dL (60-) L 08/08/21 05:15 LDL/HDL Ratio 2.2 (<4.4) 08/08/21 05:15 Cholesterol/HDL Ratio 3.5 (<4.4) 08/08/21 05:15 Lipase 20 U/L (22-51) L 08/07/21 11:00 Urine Color YELLOW 08/07/21 12:09 Urine Clarity CLOUDY (CLEAR) 08/07/21 12:09 Urine pH 8.5 PH (5.0-7.5) H 08/07/21 12:09 Ur Specific [place] 1.015 (1.002-1.030) 08/07/21 12:09 Urine Protein 100 mg/dL (NEGATIVE) H 08/07/21 12:09 Urine Glucose (UA) NEGATIVE mg/dL (NEGATIVE) 08/07/21 12:09 Urine Ketones TRACE mg/dL (NEGATIVE) 08/07/21 12:09 Urine Occult Blood MODERATE (NEGATIVE) H 08/07/21 12:09 Urine Nitrite NEGATIVE (NEGATIVE) 08/07/21 12:09 Urine Bilirubin NEGATIVE (NEGATIVE) 08/07/21 12:09 Urine Urobilinogen 0.2 (NORMAL) E.U./dL (NORMAL) 08/07/21 12:09 Ur Leukocyte Esterase LARGE (NEGATIVE) H 08/07/21 12:09 Urine RBC 6-10 /HPF (0-5) H 08/07/21 12:09 Urine WBC >25 /HPF (0-5) H 08/07/21 12:09 Ur Squamous Epith Cells FEW Squamous (<= Few) 08/07/21 12:09 Urine Crystals 0-2 Calcium Oxalate /LPF0-2 Triple Phosphate /LPF 08/07/21 12:09 Urine Crystals 0-2 Calcium Oxalate /LPF0-2 Triple Phosphate /LPF 08/07/21 12:09 Urine Bacteria Moderate /HPF (None Seen) H 08/07/21 12:09 Ur Microscopic Review INDICATED 08/07/21 12:09 Urine Culture Comments INDICATED 08/07/21 12:09 Nasal Adenovirus (PCR) NOT DETECTED 08/07/21 13:31 Nasal B. parapertussis DNA (PCR) NOT DETECTED 08/07/21 13:31 Nasal Coronavir 229E PCR NOT DETECTED 08/07/21 13:31 Nasal Coronavir HKU1 PCR NOT DETECTED 08/07/21 13:31 Nasal Coronavir NL63 PCR NOT DETECTED 08/07/21 13:31 Nasal Coronavir OC43 PCR NOT DETECTED 08/07/21 13:31 Nasal Enterovir/Rhinovir PCR NOT DETECTED 12/05/21 13:31 Nasal Influenza B PCR NOT DETECTED 08/07/21 13:31 Nasal Influenza A PCR NOT DETECTED 08/07/21 13:31 Nasal Parainfluen 1 PCR NOT DETECTED 08/07/21 13:31 Nasal Parainfluen 2 PCR NOT DETECTED 08/07/21 13:31 Nasal Parainfluen 3 PCR NOT DETECTED 08/07/21 13:31 Nasal Parainfluen 4 PCR NOT DETECTED 08/07/21 13:31 Nasal RSV (PCR) NOT DETECTED 08/07/21 13:31 Nasal B.pertussis DNA PCR NOT DETECTED 08/07/21 13:31 Nasal C.pneumoniae (PCR) NOT DETECTED 08/07/21 13:31 [place] Human Metapneumo PCR NOT DETECTED 08/07/21 13:31 Nasal M.pneumoniae (PCR) NOT DETECTED 08/07/21 13:31 Nasal SARS-CoV-2 (PCR) NOT DETECTED 08/07/21 13:31 Sepsis Event Note (H) - Sepsis Criteria Sepsis Criteria: WBC count greater than 12,000 or less than 4000, Metabolic: lactate > 2 mmol/L
--- NOTE | 2021-08-08 12:20 | CT Report ---
PROCEDURE: ANGIO HEAD W/WO INDICATIONS: R arm and leg weakness CONTRAST: IV CONTRAST: Optiray 320 ml: 80 PO CONTRAST: *NO PO CONTRAST TECHNIQUE: Precontrast 4.5 mm thick angled axial sections acquired from the foramen magnum to the vertex. Afte r the administration of intravenous contrast, 1 mm thick sections acquired through the [place] of [place] is. Postcontrast 4.5 mm thick sections then re-acquired from the foramen magnum to the vertex. 3-di mensional kokglxw-epzegpjie-jufowyeckf (MIP) and/or volume rendering reformats were acquired of the c entral intracranial vasculature. For radiation dose reduction, the following was used: automated ex posure control, adjustment of mA and/or kV according to patient size. COMPARISON: CT head 08/07/2021 FINDINGS: Image quality: Excellent. Anterior circulation: Presumed aneurysm clips are noted bilaterally at the skull base, appearing refl ective of prior aneurysm repair likely at the ICA/MCA regions. The left internal carotid artery is pa tent through the petrous portion. However within the supraclinoid portion and becomes initially dimin utive and then aneurysmally dilated measuring 10 mm in transverse dimension. The diminutive portion i s noted posteriorly within the area of calcified mass identified on prior exam. No priors are availab le for comparison. Anterior cerebral arteries demonstrate no areas of hemodynamically significant pau nosis, vascular occlusion or aneurysmal dilation. Posterior circulation: Visualized portions of the vertebral arteries demonstrate normal caliber, and join to form a normal appearing basilar artery. Flow within the posterior cerebral arteries is norm al and symmetric. No aneurysms are seen. Vertebral artery dominance is noted. The ventricular system and cortical sulci demonstrate atrophy, consistent for patient's stated age. There are areas of hypodensity in the periventricular and subcortical white matter. There is no acut e intra or extra-axial fluid collection. No acute hemorrhage, mass lesion or midline shift. Brainst em is unremarkable. Globes are symmetrical. Sinuses are aerated. Osseous structures are intact. IMPRESSION: 1. Postsurgical presumed aneurysmal clips as above. 2. 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 It is noted that the partially calcified mass identified at the skull base is suspected be secondary to aneurysma l dilation and mural thrombus. Reviewed by: Fernanda Daniel MD on 08/08/2021 12:19 PM PST Approved by: Fernanda Daniel MD on 08/08/2021 12:19 PM [facility] Station ID: [id number]
--- NOTE | 2021-08-08 12:22 | XRAY Report ---
PROCEDURE: Hip w/Pelvis 2-3V RT INDICATIONS: Fall at home, has R groin area pain TECHNIQUE: AP pelvis with lateral view(s) of the right hip(s). COMPARISON: None. FINDINGS: Bones: No fractures or dislocations. Pelvic ring appears intact. No suspicious bony lesions. Soft tissues: The visualized bowel gas pattern is normal. No suspicious soft tissue calcifications. Contrast is noted within the bladder consistent with were previous contrast administered exam.. IMPRESSION: No visualized acute fracture or dislocation. However, occult injury cannot be excluded. Recommend short interval imaging follow-up in 7-10 days as clinically indicated for additional evalua tion. Reviewed by: Fernanda Daniel MD on 08/08/2021 12:20 PM PST Approved by: Fernanda Daniel MD on 08/08/2021 12:20 PM PST Station ID: [id number]
--- NOTE | 2021-08-08 12:26 | CT Report ---
PROCEDURE: ANGIO NECK W INDICATIONS: R arm and leg weakness CONTRAST: IV CONTRAST: Optiray 320 ml: 80 PO CONTRAST: *NO PO CONTRAST TECHNIQUE: After the administration of intravenous contrast, 1.5 mm axial sections acquired from the aortic arch to the [place]. Coronal 3-D maximum intensity projection (MIP) and/or volume rendering ref ormats were then performed. For radiation dose reduction, the following was used: automated exposur e control, adjustment of mA and/or kV according to patient size. COMPARISON: CT head 08/07/2021, CTA head 08/08/2021 FINDINGS: Image quality: Excellent. The origins of the left and right common, internal and external carotid arteries demonstrate no areas of hemodynamically significant stenosis, vascular occlusion or aneurysmal dilation. Origin of the le ft vertebral artery and right vertebral artery demonstrate no areas of hemodynamically significant st enosis, vascular occlusion or aneurysmal dilation. Aortic arch demonstrates conventional anatomy. Espinoza ited, visualized portions of the subclavian vasculature are unremarkable. As identified on the CT head exam, there is marked aneurysmal dilation of the supraclinoid internal c arotid artery. Partially calcified masses noted in the skull base suspected be secondary to aneurysma l dilation and mural thrombus. Bilateral aneurysm clips are noted. IMPRESSION: There are no areas of hemodynamically significant stenosis, vascular occlusion or aneurysmal dilation within the neck vasculature. Marked dilation of the supraclinoid left internal carotid artery better appreciated on CTA head of . The estimate of stenosis included in the report of the imaging study was calculated using the NASCET method CLINICAL RECOMMENDATION STATEMENTS: In patients <35 years with an ITN detected on CT, MRI, or extrathyroidal ultrasound, the Committee re commends further evaluation with dedicated thyroid ultrasound if the nodule is "e1 cm and has no susp icious imaging features, and if the patient has normal life expectancy. In patients "e35 years with an ITN detected on CT, MRI, or extrathyroidal ultrasound, the Committee r ecommends further evaluation with dedicated thyroid ultrasound if the nodule is "e1.5 cm and has no s uspicious imaging features, and if the patient has normal life expectancy. (ACR, 2014) Reviewed by: Fernanda Daniel MD on 08/08/2021 12:25 PM PST Approved by: Fernanda Daniel MD on 08/08/2021 12:25 PM PST Station ID: [id number]
--- NOTE | 2021-08-08 14:43 | CT Report ---
PROCEDURE: PELVIS WO INDICATIONS: Fall at home, poss fracture of R hip or pelvis TECHNIQUE: Noncontrast 3 mm axial sections acquired through the bony pelvis, with coronal and sagittal reformatt ing. For radiation dose reduction, the following was used: automated exposure control, adjustment of mA and/or kV according to patient size. COMPARISON: CT pelvis dated October 09, 2018. FINDINGS: Image quality: Excellent. Bones: No acute, displaced fracture. Soft tissues: No significant abnormality. Other: Sigmoid diverticulosis. Left urinary bladder diverticulum, measuring 1.7 cm. IMPRESSION: No acute osseous abnormality. If the patient is unable to bear weight, consider magnetic resonance im aging. Reviewed by: Marck Roque MD on 08/08/2021 2:42 PM PST Approved by: Marck Roque MD on 08/08/2021 2:42 PM PST Station ID: [id number]
[2021-08-08] MEDS: ACETAMINOPHEN/CODEINE 300 MG/30 MG TABLET PO PRN ×3 (14:44→22:06)
[2021-08-08] MEDS: SENNA 8.6 MG TABLET PO SCH (22:06)
[2021-08-08] MEDS: DOCUSATE SODIUM 250 MG CAPSULE PO SCH (22:06)
[2021-08-08] MEDS: ATORVASTATIN 40 MG TABLET PO SCH (22:06)
[2021-08-09] MEDS: DEXTROSE 5%-0.9% NACL 1,000 ML IV SCH ×3 (00:52→22:26)
[2021-08-09] MEDS: SODIUM CHLORIDE FLUSH 0.9% 10 ML SYRINGE IVP SCH ×3 (01:23→18:07)
[2021-08-09] MEDS: ACETAMINOPHEN/CODEINE 300 MG/30 MG TABLET PO PRN ×5 (04:09→22:10)
[2021-08-09 06:29] LABS: BASOPHILS # (AUTO) 0.1 10^3/uL (0.0-0.1); BASOPHILS % (AUTO) 1.1 %; EOSINOPHILS # (AUTO) 0.4 10^3/uL (0.0-0.7); EOSINOPHILS % (AUTO) 5.4 %; HCT - HEMATOCRIT 36.8 % (37.0-47.0); HGB - HEMOGLOBIN 11.8 g/dL (12.0-16.0); LYMPHOCYTES # (AUTO) 1.4 10^3/uL (1.5-3.5); LYMPHOCYTES % (AUTO) 18.9 %; MEAN CORPUSCULAR HEMOGLOBIN 29.7 pg (27.0-31.0); MEAN CORPUSCULAR HGB CONC 32.1 g/dL (32.0-36.0); MEAN CORPUSCULAR VOLUME 92.7 fL (81.0-99.0); MEAN PLATELET VOLUME 9.2 fL (7.9-10.8); MONOCYTES % (AUTO) 12.9 %; NEUTROPHILS # (AUTO) 4.6 10^3/uL (1.5-6.6); NEUTROPHILS % (AUTO) 61.3 %; PLT - PLATELET COUNT 346 10^3/uL (130-450); RED BLOOD COUNT 3.97 10^6/uL (4.20-5.40); RED CELL DISTRIBUTION WIDTH 13.8 % (12.0-15.0); WHITE BLOOD COUNT 7.5 x10^3/uL (4.8-10.8)
[2021-08-09 06:53] LABS: CALCIUM 8.6 mg/dL (8.5-10.3); CREATININE 1.2 mg/dL (0.4-1.0); POTASSIUM 3.6 mmol/L (3.5-5.0)
--- NOTE | 2021-08-09 08:18 | PROVIDER PROGRESS NOTE ---
Subjective - Prog Note Date Prog Note Date: 08/09/21 Prog Note Time: 09:03 - Subjective Pt reports feeling: No change Subjective: Patient reports feeling about the same as yesterday. She is eating well and appetite is intact. She has an unchanged prominent left eye droop, which is a chronic issue and stems from a prior brain aneurysm surgery. She has ongoing right-sided arm and leg weakness but with preserved cerebellar function, which was a new problem upon admission. She is able to understand questions but responds with one worded sentences. She continues to have right groin pain despite Vicodin and was unable to complete rehab services yesterday since we were waiting on CT results of a potential hip/femur fracture. CT scan was unremarkable for fracture and she should be started on PT today. OT evaluated her and had her using large-handle utensils, which she was able to use with her right hand. She lives alone so we will need to coordinate care for disposition. PT evaluated her today and determined she is eligible for SNF services upon discharge. Still pending [facility] medical records so we will continue to hold off on MRI. Current Medications - Current Medications Current Medications: Active Medications Acetaminophen (Acetaminophen 325 Mg Tablet) 650 mg PO Q4HR PRN PRN Reason: Pain or Fever > 38C (100.4F) Last Admin: 08/08/21 10:45 Dose: 650 mg Documented by: Acetaminophen/Codeine Phosphate (Acetaminophen/Codeine 300 Mg/30 Mg Tablet) 1 tab PO Q4HR PRN PRN Reason: PAIN 5-7 Last Admin: 08/09/21 08:22 Dose: 1 tab Documented by: Aspirin (Aspirin Ec 81 Mg Tablet) 81 mg PO DAILY [facility] Last Admin: 08/09/21 08:21 Dose: 81 mg Documented by: Atorvastatin Calcium (Atorvastatin 40 Mg Tablet) 40 mg PO QPM [facility] Last Admin: 08/08/21 22:06 Dose: 40 mg Documented by: Docusate Sodium (Docusate Sodium 250 Mg Capsule) 250 - 500 mg PO DAILY [facility] Last Admin: 08/09/21 08:20 Dose: 250 mg Documented by: Dextrose/Sodium Chloride (D5ns) 1,000 mls @ 100 mls/hr IV .Q10H [facility] Last Admin: 08/09/21 00:52 Dose: 100 mls/hr Documented by: Ceftriaxone Sodium 1 gm/ (Sodium Chloride) 100 mls @ 200 mls/hr IV DAILY [facility] Last Infusion: 08/09/21 09:02 Dose: Infused Documented by: Ondansetron HCl (Ondansetron 4 Mg/2 Ml Vial) 4 mg IVP Q6HR PRN PRN Reason: Nausea / Vomiting Polyethylene Glycol (Polyethylene Glycol 3350 17 Gm Packet) 17 gm PO DAILY [facility] Last Admin: 08/09/21 08:22 Dose: 17 gm Documented by: Senna (Senna 8.6 Mg Tablet) 8.6 - 17.2 mg PO DAILY [facility] Last Admin: 08/09/21 08:21 Dose: 8.6 mg Documented by: Sodium Chloride (Sodium Chloride Flush 0.9% 10 Ml Syringe) 10 ml IVP PRN PRN PRN Reason: NEEDED PER PROVIDER ORDERS Sodium Chloride (Sodium Chloride Flush 0.9% 10 Ml Syringe) 10 ml IVP 0100,0900,1700 [facility] Last Admin: 08/09/21 08:24 Dose: 10 ml Documented by: Amlodipine Besylate 10 mg PO DAILY 10/09/18 lisinopriL [Lisinopril] 40 mg PO DAILY 08/07/21 Objective - Vital Signs/Intake & Output Vital Signs: Vital Signs x48h Temp Pulse Resp BP Pulse Ox 08/09/21 07:22 36.9 C 74 18 155/85 H 98 08/09/21 04:14 36.9 C 79 18 151/76 H 97 Intake & Output: Intake & Output 08/06/21 08/07/21 08/08/21 08/09/21 23:59 23:59 23:59 23:59 Intake Total 1100 3310.000 905 Output Total 991 489 2702 Balance 900 2610.000 -295 - Objective General Appearance: positive: No acute distress Eyes Bilateral: positive: Other (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) Neck: positive: Nml inspection, No JVD, Trachea midline Respiratory: positive: Chest non-tender, No respiratory distress, Breath sounds nml Cardiovascular: positive: Regular rate & rhythm Abdomen: positive: Non-tender, No organomegaly Skin: positive: Color nml, No rash Neurologic/Psychiatric: positive: Weakness (Right sided arm and leg weakness but intact motor function), Facial droop (left eye, which is a preexisting issue), Other (Aphasia) - Lab Results Fish Bones: 08/09/21 05:30 08/09/21 05:30 Other Labs: Lab Results x24hrs 08/09/21 08/09/21 Range/Units 05:30 05:30 WBC 7.5 (4.8-10.8) x10^3/uL RBC 3.97 L (4.20-5.40) 10^6/uL Hgb 11.8 L (12.0-16.0) g/dL Hct 36.8 L (37.0-47.0) % MCV 92.7 (81.0-99.0) fL MCH 29.7 (27.0-31.0) pg MCHC 32.1 (32.0-36.0) g/dL RDW 13.8 (12.0-15.0) % Plt Count 346 (130-450) 10^3/uL MPV 9.2 (7.9-10.8) fL Neut # (Auto) 4.6 (1.5-6.6) 10^3/uL Lymph # (Auto) 1.4 L (1.5-3.5) 10^3/uL [place] # (Auto) 1.0 (0.0-1.0) 10^3/uL Eos # (Auto) 0.4 (0.0-0.7) 10^3/uL Baso # (Auto) 0.1 (0.0-0.1) 10^3/uL Absolute Nucleated RBC 0.00 x10^3/uL Nucleated RBC % 0.0 /100WBC Sodium 138 (135-145) mmol/L Potassium 3.6 (3.5-5.0) mmol/L Chloride 107 (101-111) mmol/L Carbon Dioxide 23 (21-32) mmol/L Anion Gap 8.0 (6-13) BUN 19 (6-20) mg/dL Creatinine 1.2 H (0.4-1.0) mg/dL Estimated GFR (MDRD) 45 L (>89) Glucose 97 (70-100) mg/dL Calcium 8.6 (8.5-10.3) mg/dL Total Creatine Kinase 684 H (22-269) IU/L ABX Reporting Has patient been on IV antibiotics over the past 48 hours?: Yes Sepsis Event Note (H) - Sepsis Criteria Sepsis Criteria: WBC count greater than 12,000 or less than 4000, Metabolic: lactate > 2 mmol/L Assessment/Plan - Problem List (1) Stroke Impression: Qualifiers: CVA mechanism: unspecified Qualified Code(s): I63.9 - Cerebral infarction, unspecified Assessment/Plan: She reports feeling about the same as yesterday. Unchanged prominent left eyelid droop and right-sided arm and leg weakness still present and consistent with a completed stroke. She understands questions and responds appropriately but in one-worded sentences. She was able to recall that she had brain clips placed at [facility] roughly 10 years ago. We are still waiting on requested records from [facility] but because they are from 10 years ago, they are on microfilm, which may result in it taking a while to get the requested information. MRI needs to know the exact material of these clips before proceeding with MRI. At this time, we are unable to move forward with the MRI. 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 The brain parenchyma had many artifacts from the metal clips so could not define the area of stroke. A brain MRI is needed, if she has MRI-compatible brain clips. Her Echo showed a bi-directional PFO is present. Continue on telemetry. Continue with daily aspirin. Her fasting lipids showed LDL of 80. Goal is < 70. Continue statin. Begin PT and OT today - no fracture noted on CT scan so may proceed with rehab services. She will likely need PT and OT for stroke rehab. Social Work was told that she cannot go back to living alone without caregivers after SNF so we will need to coordinate this prior to discharge. PT evaluated her today and determined she is eligible for SNF services upon discharge and does not need an inpatient neurology evaluation. She will need determination (by Neurology and/or Cardiology) if the PFO needs closure. Goal is to discharge her to SNF once medically cleared. We hope this will happen tomorrow or the following day. 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 Theoretically this could have broken off to produce ischemia in the distal vessel. Continue with aspirin daily. She is still not a candidate for anticoagulation because of the acute stroke, and we do not want to turn it into hemorrhagic stroke. We will hopefully obtain a brain MRI pending [facility] records of the clips in order to locate the area of cerebral ischemic stroke. (3) Patent foramen ovale Assessment/Plan: She will need determination (by Neurology and/or Cardiology) if the PFO needs closure. (4) Severe right groin pain Assessment/Plan: This was not a complaint at the time of admission, last evening. She did suffer a fall though several days ago, therefore we need to evaluate for trauma. She underwent x-ray of the right hip and pelvis which was not definitive to rule out a fracture. This was discussed with the radiologist yesterday. A CT of the right pelvic and hip area showed no acute fracture so she may p roceed with walking and PT/OT services. Patient states pain is not currently well-controlled so we will increase her Vicodin dose and consider adding Dilaudid prn. (5) Rhabdomyolysis Qualifiers: Qualified Code(s): M62.82 - Rhabdomyolysis Assessment/Plan: She laid on the ground for 2-1/2 days before a neighbor found her to call an ambulance. Her CK of 2600 has continued to decrease and was found to be 684 today with IV saline. Avoid nephrotoxins. Follow CK until normalized and BMP daily. (6) UTI (urinary tract infection) Qualifiers: Urinary tract infection type: acute cystitis Hematuria presence: with hematuria Qualified Code(s): N30.01 - Acute cystitis with hematuria Assessment/Plan: Gross hematuria was seen on her urinalysis and she had greater than 25 WBCs consistent with UA. Continue empiric IV ceftriaxone. Blood cultures do not show any organism growth including 1 day after collection. Urine culture shows proteus mirabilis on final report, which is sensitive to ceftriaxone so we will continue with that. Lactate has since normalized from being elevated at 2.7 upon admission. (7) PRAVIN (acute kidney injury) Assessment/Plan: Likely from dehydration plus rhabdomyolysis. She is getting IV fluids. Urine/creatinine has improved slightly. Avoid nephrotoxins Follow BMP daily. (8) Dehydration Assessment/Plan: Improving clinically, she is getting IV fluids for rehydration and able to take liquids orally (9) Abnormal EKG Assessment/Plan: The troponins were elevated but flat, ruling out an acute coronary event. The resting Echo showed no regional LV wall motion abnormalities. (10) HTN (hypertension) Assessment/Plan: She only took lisinopril and amlodipine at home. These continue to be on hold because she has a normal blood pressure. (11) H/O brain surgery Assessment/Plan: Details of when this occurred are not known. 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 (12) Obesity (BMI 30-39.9) Assessment/Plan: As per Hx (13) Vascular dementia without behavioral disturbance Assessment/Plan: As per Hx. Qualifiers: CVA mechanism: unspecified Qualified Code(s): I63.9 - Cerebral infarction, unspecified
[2021-08-09] MEDS: DOCUSATE SODIUM 250 MG CAPSULE PO SCH (08:20)
[2021-08-09] MEDS: SENNA 8.6 MG TABLET PO SCH (08:21)
[2021-08-09] MEDS: ASPIRIN EC 81 MG TABLET PO SCH (08:21)
[2021-08-09] MEDS: cefTRIAXone 1 GM in SODIUM CHLORIDE 0.9% MINIBAG 100 ML IV SCH (08:22)
[2021-08-09] MEDS: polyethylene glycoL 3350 17 GM PACKET PO SCH (08:22)
[2021-08-09] MEDS: ATORVASTATIN 40 MG TABLET PO SCH (22:11)
[2021-08-10] MEDS: SODIUM CHLORIDE FLUSH 0.9% 10 ML SYRINGE IVP SCH ×2 (00:34→08:39)
[2021-08-10] MEDS: ACETAMINOPHEN/CODEINE 300 MG/30 MG TABLET PO PRN ×2 (04:36→11:08)
[2021-08-10 05:51] LABS: BASOPHILS # (AUTO) 0.1 10^3/uL (0.0-0.1); BASOPHILS % (AUTO) 1.3 %; EOSINOPHILS # (AUTO) 0.4 10^3/uL (0.0-0.7); EOSINOPHILS % (AUTO) 6.2 %; HCT - HEMATOCRIT 36.7 % (37.0-47.0); HGB - HEMOGLOBIN 11.9 g/dL (12.0-16.0); LYMPHOCYTES # (AUTO) 1.6 10^3/uL (1.5-3.5); LYMPHOCYTES % (AUTO) 21.9 %; MEAN CORPUSCULAR HEMOGLOBIN 30.1 pg (27.0-31.0); MEAN CORPUSCULAR HGB CONC 32.4 g/dL (32.0-36.0); MEAN CORPUSCULAR VOLUME 92.9 fL (81.0-99.0); MONOCYTES # (AUTO) 0.9 10^3/uL (0.0-1.0); MONOCYTES % (AUTO) 12.6 %; NEUTROPHILS # (AUTO) 4.1 10^3/uL (1.5-6.6); NEUTROPHILS % (AUTO) 57.6 %; PLT - PLATELET COUNT 328 10^3/uL (130-450); RED BLOOD COUNT 3.95 10^6/uL (4.20-5.40); RED CELL DISTRIBUTION WIDTH 13.5 % (12.0-15.0); WHITE BLOOD COUNT 7.1 x10^3/uL (4.8-10.8)
[2021-08-10 06:04] LABS: CALCIUM 8.9 mg/dL (8.5-10.3); POTASSIUM 3.9 mmol/L (3.5-5.0)
[2021-08-10] MEDS: DEXTROSE 5%-0.9% NACL 1,000 ML IV SCH (08:28)
[2021-08-10] MEDS: polyethylene glycoL 3350 17 GM PACKET PO SCH (08:39)
[2021-08-10] MEDS: cefTRIAXone 1 GM in SODIUM CHLORIDE 0.9% MINIBAG 100 ML IV SCH (08:42)
[2021-08-10] MEDS: DOCUSATE SODIUM 250 MG CAPSULE PO SCH (08:43)
[2021-08-10] MEDS: SENNA 8.6 MG TABLET PO SCH (08:43)
[2021-08-10] MEDS: ASPIRIN EC 81 MG TABLET PO SCH (08:43)
[2021-08-10] MEDS ORDERED: BISACODYL 10 MG SUPP PR ONE (10:01)
--- NOTE | 2021-08-10 10:29 | Discharge Plan ---
"Discharge Plan for SNF / [facility] - Discharge Plan And Transition Orders Problem Reviewed?: Yes Disposition: 03 SNF DC/Xfer Condition: Stable Allergies and Adverse Reactions: Allergies Allergy/AdvReac Type Severity Reaction Status Date / Time No Known Drug Allergies Allergy Verified 10/09/18 15:57 Health Concerns: The patient already has a history of previous aneurysm clipping which is resulted in a chronic left facial droop and severe left eyelid droop. She presented to our emergency room after falling out of bed due to weakness in her right side. She crawled to a porch and sat there for 2 days until she was seen by her neighbor who brought her to the emergency room. She was found to have a new stroke affecting her right arm and leg, her chronic left eyelid droop, and rhabdomyolysis with a UTI. UTI culture has grown Proteus sensitive to third- generation cephalosporin. She has been seen by our physical therapy and occupational therapy department. She is felt an appropriate candidate for fci facility rehab for strengthening, occupational therapy, and return to her home with adequate support care at home. Plan of Treatment: 1. As of August 10 she has received 3 doses of Rocephin. She will need 4 more days of cefdinir. That will complete August 14. 2. Plan for physical and occupational therapy to then return to home Care Goals: Patient lives alone, is able to take care of herself. Prior to hospitalization did not use DME or assistive device. Her friend Stephanie provides transportation for medical appointments and shopping.She plans on staying with Shoshana when she is discharged. Assessment: patient understands and agrees with plan - SNF / [facility] Transition Orders Admit to (Facility): [facility] Discharge Diagnosis: 1. Left brain stroke with right body residual 2. History of aneurysm , s/p clipping, with chronic left facial droop 3. 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 Patent foramen ovale 5. Severe right groin pain 6. Rhabdomyolysis 7. Dehydration 8. Acute kidney injury 9. Proteus UTI 10. Elevated troponins 11. Hypertension 12. Morbid obesity 13. Vascular dementia without behavioral disturbance Medicare Certification Statement: I certify that [facility] care is medically necessary on a continuing basis for any of the conditions for which she/he is receiving care during hospitalization. Notify PCP of admission and forward orders to primary provider for signature. Weight on admission and: Weekly Other Notification Orders: Call PCP immediately if patient develops dyspnea, chest pain/tightness or edema. House Bowel Program: Yes Additional Bowel Program Orders: If no BM after 2 days, nurse may give M.O.M. 30ml PO PRN and/or ducolax Supp 1 [place] and/or JOSE 250mg P.O., and/or senna 1-2 tabs PO. On day 3 nurse may give repeat above order until residents constipation is resolved. Annual Influenza Vaccine (between May 04 and December 01): Yes Two-step PPD per [facility] [phone] or approved exception documents: Yes Medication Orders: PLEASE REFER TO THE DISCHARGE MEDICATION LIST. Insulin Orders?: No - Medications New Prescriptions: Acetaminophen/Cod 300/30 [Tylenol #3] 1 tab PO Q4HR PRN #30 tablet PRN Reason: Pain 5-7 Cefdinir 300 mg PO BID #8 cap - Diet Type: Geriatric Texture: Regular Liquids: Thin May have monthly special meal: Yes - Therapies | Activity Therapy: Evaluation | Treat if indicated: Speech, PT, OT Rehabilitation Potential: Return to independent living Activity: Activity as Tolerated Weight Bearing: Full Weight Assistance Devices: Walker Follow Up: [facility]"
--- NOTE | 2021-08-10 10:39 | PROVIDER PROGRESS NOTE ---
Subjective - Prog Note Date Prog Note Date: 08/10/21 Prog Note Time: 10:33 - Subjective Pt reports feeling: Improved Subjective: Patient reports feeling slightly better this morning. She continues to have right-sided weakness in her arm and leg. She also has chronic left sided weakness in her leg and prominent left eyelid paralysis. She has reserved motor function bilaterally but is overall weak. She also continues to have dysarthria but understands questions and answers appropriately but in one-worded sentences. Her appetite is intact however she has not had a BM since admission despite being on bowel protocol. Nursing will place a suppository today in hopes of initiating a bowel movement. She is medically cleared for discharge and has been accepted by a SNF with a scheduled fruit picker machine operator of 2:30pm today. Current Medications - Current Medications Current Medications: Active Medications Acetaminophen (Acetaminophen 325 Mg Tablet) 650 mg PO Q4HR PRN PRN Reason: Pain or Fever > 38C (100.4F) Last Admin: 08/08/21 10:45 Dose: 650 mg Documented by: Acetaminophen/Codeine Phosphate (Acetaminophen/Codeine 300 Mg/30 Mg Tablet) 1 tab PO Q4HR PRN PRN Reason: PAIN 5-7 Last Admin: 08/10/21 04:36 Dose: 1 tab Documented by: Aspirin (Aspirin Ec 81 Mg Tablet) 81 mg PO DAILY [facility] Last Admin: 08/10/21 08:43 Dose: 81 mg Documented by: Atorvastatin Calcium (Atorvastatin 40 Mg Tablet) 40 mg PO QPM [facility] Last Admin: 08/09/21 22:11 Dose: 40 mg Documented by: Docusate Sodium (Docusate Sodium 250 Mg Capsule) 250 - 500 mg PO DAILY [facility] Last Admin: 08/10/21 08:43 Dose: 250 mg Documented by: Dextrose/Sodium Chloride (D5ns) 1,000 mls @ 100 mls/hr IV .Q10H [facility] Last Admin: 08/10/21 08:28 Dose: 100 mls/hr Documented by: Ceftriaxone Sodium 1 gm/ (Sodium Chloride) 100 mls @ 200 mls/hr IV DAILY [facility] Last Infusion: 08/10/21 09:41 Dose: Infused Documented by: Ondansetron HCl (Ondansetron 4 Mg/2 Ml Vial) 4 mg IVP Q6HR PRN PRN Reason: Nausea / Vomiting Polyethylene Glycol (Polyethylene Glycol 3350 17 Gm Packet) 17 gm PO DAILY [facility] Last Admin: 08/10/21 08:39 Dose: 17 gm Documented by: Senna (Senna 8.6 Mg Tablet) 8.6 - 17.2 mg PO DAILY [facility] Last Admin: 08/10/21 08:43 Dose: 8.6 mg Documented by: Sodium Chloride (Sodium Chloride Flush 0.9% 10 Ml Syringe) 10 ml IVP PRN PRN PRN Reason: NEEDED PER PROVIDER ORDERS Sodium Chloride (Sodium Chloride Flush 0.9% 10 Ml Syringe) 10 ml IVP 0100,0900,1700 [facility] Last Admin: 08/10/21 08:39 Dose: 10 ml Documented by: Amlodipine Besylate 10 mg PO DAILY 10/09/18 lisinopriL [Lisinopril] 40 mg PO DAILY 08/07/21 Objective - Vital Signs/Intake & Output Reviewed Vital Signs: Yes Vital Signs: Vital Signs x48h Temp Pulse Resp BP Pulse Ox 08/10/21 07:50 36.9 C 72 17 159/83 H 99 08/10/21 04:41 36.9 C 75 16 150/78 H 98 Intake & Output: Intake & Output 08/07/21 08/08/21 08/09/21 08/10/21 23:59 23:59 23:59 23:59 Intake Total 1100 3310.000 4601 2202 Output Total 444 233 0307 1300 Balance 900 2610.000 2651 902 - Objective General Appearance: positive: No acute distress Eyes Bilateral: positive: Other (Chronic left eyelid paralysis) ENT: positive: ENT inspection nml Neck: positive: Nml inspection, No JVD Respiratory: positive: No respiratory distress Cardiovascular: positive: Regular rate & rhythm Abdomen: positive: Non-tender, No organomegaly Skin: positive: Color nml, No rash Extremities: positive: Non-tender, Other (Bilateral upper and lower extremity weakness) Neurologic/Psychiatric: positive: Oriented x3, Facial droop - Lab Results Fish Bones: 08/10/21 05:34 08/10/21 05:34 Other Labs: Lab Results x24hrs 08/10/21 08/10/21 Range/Units 05:34 05:34 WBC 7.1 (4.8-10.8) x10^3/uL RBC 3.95 L (4.20-5.40) 10^6/uL Hgb 11.9 L (12.0-16.0) g/dL Hct 36.7 L (37.0-47.0) % MCV 92.9 (81.0-99.0) fL MCH 30.1 (27.0-31.0) pg MCHC 32.4 (32.0-36.0) g/dL RDW 13.5 (12.0-15.0) % Plt Count 328 (130-450) 10^3/uL MPV 9.0 (7.9-10.8) fL Neut # (Auto) 4.1 (1.5-6.6) 10^3/uL Lymph # (Auto) 1.6 (1.5-3.5) 10^3/uL [place] # (Auto) 0.9 (0.0-1.0) 10^3/uL Eos # (Auto) 0.4 (0.0-0.7) 10^3/uL Baso # (Auto) 0.1 (0.0-0.1) 10^3/uL Absolute Nucleated RBC 0.00 x10^3/uL Nucleated RBC % 0.0 /100WBC Sodium 140 (135-145) mmol/L Potassium 3.9 (3.5-5.0) mmol/L Chloride 108 (101-111) mmol/L Carbon Dioxide 23 (21-32) mmol/L Anion Gap 9.0 (6-13) BUN 13 (6-20) mg/dL Creatinine 1.0 (0.4-1.0) mg/dL Estimated GFR (MDRD) 55 L (>89) Glucose 101 H (70-100) mg/dL Calcium 8.9 (8.5-10.3) mg/dL Total Creatine Kinase 349 H (22-269) IU/L ABX Reporting Has patient been on IV antibiotics over the past 48 hours?: Yes Sepsis Event Note (H) - Sepsis Criteria Sepsis Criteria: WBC count greater than 12,000 or less than 4000, Metabolic: lactate > 2 mmol/L Assessment/Plan - Problem List (1) Stroke Impression: Qualifiers: CVA mechanism: unspecified Qualified Code(s): I63.9 - Cerebral infarction, unspecified Assessment/Plan: She reports feeling slightly better today. Unchanged chronic prominent left eyelid droop and left-sided leg weakness along with right-sided arm and leg weakness that was new upon admission and consistent with a completed stroke. She continues to understand questions and responds appropriately but in one-worded sentences. She was able to recall that she had brain clips placed at [facility] roughly 10 years ago. We are still waiting on requested records from [facility] but because they are from 10 years ago, they are on microfilm, which may result in it taking a while to get the requested information. MRI needs to know the exact material of these clips before proceeding with MRI. At this time, we are foregoing the MRI as inpatient and she may get this at some point through her primary care physician as outpatient. 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 The brain parenchyma had many artifacts from the metal clips so could not define the area of stroke. A brain MRI is needed, if she has MRI-compatible brain clips. Her Echo showed a bi-directional PFO is present. She has been doing well with PT and OT and was determined to be medically cleared today so we will be discharging her to a SNF for rehab. An accepting SNF has been identified and will picking her up today at 2:30pm. She has not had a BM while admitted despite being on bowel protocol. Nursing will place a suppository to hopefully achieve a BM prior to discharge to SNF. Still needs determination (by Neurology and/or Cardiology) if the PFO needs closure but this will be handled as outpatient. 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 Theoretically this could have broken off to produce ischemia in the distal vessel. Continue with aspirin daily. She is still not a candidate for anticoagulation because of the acute stroke, and we do not want to turn it into hemorrhagic stroke. We will hopefully obtain a brain MRI pending [facility] records of the clips in order to locate the area of cerebral ischemic stroke. (3) Patent foramen ovale Assessment/Plan: She will need determination (by Neurology and/or Cardiology) if the PFO needs closure, which will be done outpatient. (4) Severe right groin pain Assessment/Plan: This was not a complaint at the time of admission. She did suffer a fall though several days ago, therefore we evaluated for trauma. She underwent x-ray of the right hip and pelvis which was not definitive to rule out a fracture. This was discussed with the radiologist the other day. A CT of the right pelvic and hip area showed no acute fracture so she began walking and PT/OT services. Pain well controlled today. (5) Rhabdomyolysis Qualifiers: Qualified Code(s): M62.82 - Rhabdomyolysis Assessment/Plan: She laid on the ground for 2-1/2 days before a neighbor found her to call an ambulance. CK has normalized. Continue to avoid nephrotoxins. (6) UTI (urinary tract infection) Qualifiers: Urinary tract infection type: acute cystitis Hematuria presence: with hematuria Qualified Code(s): N30.01 - Acute cystitis with hematuria Assessment/Plan: Gross hematuria was seen on her urinalysis and she had greater than 25 WBCs consistent with UA. Blood cultures do not show any organism growth including 1 day after collection. Urine culture shows proteus mirabilis on final report, which is sensitive to ceftriaxone so we will continue with that. Lactate has since normalized from being elevated at 2.7 upon admission. Continue empiric IV ceftriaxone until discharge and switch to PO Cefedinir. (7) PRAVIN (acute kidney injury) Assessment/Plan: Likely from dehydration plus rhabdomyolysis. She received IV fluids while admitted. Urine/creatinine has improved slightly. Continue to avoid nephrotoxins Followed BMP daily. (8) Dehydration Assessment/Plan: Improving clinically, she is getting IV fluids for rehydration and able to take liquids orally. (9) Abnormal EKG Assessment/Plan: The troponins were elevated but flat, ruling out an acute coronary event. The resting Echo showed no regional LV wall motion abnormalities. (10) HTN (hypertension) Assessment/Plan: She only took lisinopril and amlodipine at home. These continue to be on hold because she has a normal blood pressure. (11) H/O brain surgery Assessment/Plan: Details of when this occurred are not known. 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 (12) Obesity (BMI 30-39.9) Assessment/Plan: As per Hx (13) Vascular dementia without behavioral disturbance Assessment/Plan: As per Hx. Qualifiers: CVA mechanism: unspecified Qualified Code(s): I63.9 - Cerebral infarction, unspecified Qualifiers: CVA mechanism: unspecified Qualified Code(s): I63.9 - Cerebral infarction, unspecified
[2021-08-10 11:46] LABS: B. PARAPERTUSSIS- RESP PCR PAN NOT DETECTED; B. PERTUSSIS- RESP PCR PANEL NOT DETECTED; C. PNEUMONIAE- RESP PCR PANEL NOT DETECTED; CORONAVIRUS 229E-RESP PCR NOT DETECTED; CORONAVIRUS HKU1-RESP PCR NOT DETECTED; CORONAVIRUS NL63-RESP PCR NOT DETECTED; CORONAVIRUS OC43-RESP PCR NOT DETECTED; HUMAN METAPNEUMOVIRUS NOT DETECTED; INFLUENZA A- RESP PCR PANEL NOT DETECTED; INFLUENZA B - RESP PCR PANEL NOT DETECTED; M. PNEUMONIAE- RESP PCR PANEL NOT DETECTED; PARAINFLUENZA VIRUS 1 NOT DETECTED; PARAINFLUENZA VIRUS 2 NOT DETECTED; PARAINFLUENZA VIRUS 3 NOT DETECTED; PARAINFLUENZA VIRUS 4 NOT DETECTED; RHINOVIRUS/ENTEROVIRUS NOT DETECTED; RSV- RESP PCR PANEL NOT DETECTED; SARS-CoV-2 -RESP PCR PANEL NOT DETECTED
[2021-08-10 13:20] VITALS: BP 147/75
--- NOTE | 2021-08-10 16:52 | DISCHARGE SUMMARY ---
Discharge Summary Admit Date: 08/07/21 Discharge Date: 08/10/21 Discharging Provider: Bessy Tellez MD Primary Care Provider: NINFA Griffin Code Status: Attempt Resuscitation Condition at Discharge: Stable Discharge Disposition: DC/Xfer - DIAGNOSES Discharge Diagnoses with Status of Each Condition: 1. Left brain stroke with right body residual 2. History of aneurysm , s/p clipping, with chronic left facial droop 3. 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 Patent foramen ovale 5. Severe right groin pain 6. Rhabdomyolysis 7. Dehydration 8. Acute kidney injury 9. Proteus UTI 10. Elevated troponins 11. Hypertension 12. Morbid obesity 13. Vascular dementia without behavioral disturbance - HPI History of Present Illness: This is a 70-year-old white female who lives alone. She has a history of recurrent UTIs, hypertension and mild vascular dimension. She was admitted here with sepsis from a UTI two years ago and required transfer to SNF for PT rehab. She has a history of bilateral cerebral aneurysms that needed to be clipped bilaterally. Patient was brought in by ambulance, which was called by her neighbor. The patient was able to tell the ED provider ahat she has old left upper face and eyelid weakness from the cerebral aneurysms, but over the last 2 or 3 days has had overall weakness, and new arm and leg weakness of the right side (for unknown amount of time). She reported being incontinent of urine in her bed, fell out of bed, was unable to get up, crawled to her front porch and sat there (for possibly 2 days) until her neighbor saw her and and an ambulance was called. Vital signs at the scene are not available. In the ED, the patient was found to have right arm and leg weakness compared to left, hematuria, a UTI by urinalysis, elevated white blood count of 15, lactic acid of 2.4, BUN/creat of 49/1.9 and serum CK of 2671. The patient had a head CT without contrast that shows her bilateral aneurysm clips and brain atrophy but no other acute findings. The patient is being admitted to the Hospitalist service for treating rhabdomyolysis, PRAVIN, UTI with hematuria and a probable stroke. We discussed her CODE BLUE wishes and she wants to be a Full Code. - Past Medical History Cardiovascular: reports: Hypertension Respiratory: reports: None Neuro: reports: Other Endocrine/Autoimmune: reports: None GI: reports: None : reports: None HEENT: reports: Other (L eyelid chronically closed) Musculoskeletal: reports: None Derm: reports: None - Past Surgical History Ortho: reports: Arthroscopic surgery Neuro: reports: Other (Bilateral brain aneurysm clips) - CONSULTS | PROCEDURES Procedures: 1. Head CT without acute intracranial abnormality. Surgical clips and probable aneurysm coils along the skull base bilaterally. An extra-axial peripherally calcified mass or collection demonstrated along the left skull base. Nonspecific, may reflect sequela of prior surgery, meningioma, or possible vascular malformation. 2. Chest x-ray without acute cardiopulmonary disease. 3. CT angiogram has postsurgical aneurysmal clips. Marked aneurysmal dilation of the supraclinoid left internal carotid artery. The calcified mass is suspected to be secondary to aneurysmal dilation and mural thrombus. 4. Pelvis plain film without visualized acute fracture or dislocation. If suspect occult fracture repeat imaging in a week. 5. Neck CT angiogram without hemodynamically significant stenosis, vascular occlusion or aneurysmal dilation within the neck. Reference to the dilation of the supraclinoid left internal carotid artery better appreciated on CT of the head August 08, 2021. 7. Pelvis CT without osseous abnormality. If still unable to bear weight, consider MRI. 8. Urine culture with Proteus mirabilis 9. Blood culture negative 10. Echocardiogram has left ventricle size normal. Ejection fraction 65%. Right ventricle normal. Contrast injection of agitated saline was positive for atrial shunt suggesting PFO in both directions. - HOSPITAL COURSE Hospital Course: It is felt that the patient could have theoretically had some mural thrombus broken off to induce ischemia in the distal left internal carotid artery as the cause of her problem. An echocardiogram also showed a patent foramen ovale going both ways. Severe right groin pain was evaluated with CT and plain film and it was difficult for her to weight-bear. UTI with Proteus was treated with antibiotics. Rhabdomyolysis was treated with IV fluids. Overall this patient is significant risk from her multiple cardiac factors and cerebrovascular factors I went over with all of her results and stressed to her over and over again that she must follow-up with cardiology and neurosurgery. She is discharged to alf facility to improve her strength and then return to home. Prior to hospitalization she did not use DME or assistive device. Her friend "Stephanie" provides quite a bit of help with transportation and light household duties. She received 3 days of Rocephin here and she is transferred needing 4 more days of cefdinir to the alf facility. At discharge temperature was 37. Blood pressure 147/75. Respirations 18. 100% on room air. She is 5 feet 1 inches tall weighs 95.5 kg. Speech is slightly slurred, lungs are clear without respiratory effort noted to in speaking to me. Regular rate and rhythm. Abdomen is slightly distended with gas, large pannus but nontender. Normal bowel sounds. Last bowel movement was today. Prior to that was August 04. She has right-sided weakness in her arm and leg. She also has chronic left-sided weakness, prominent left eyelid paralysis. Overall quite weak. The dysarthria is present. She understands question and answers appropriately but in one-word sentences. Appetite is intact, eating well and we have provided her with a large spoon to use her dominant arm and she is somewhat able to do so. Greater than 30 minutes was spent coordinating discharge. - ALLERGIES Allergies/Adverse Reactions: Allergies Allergy/AdvReac Type Severity Reaction Status Date / Time No Known Drug Allergies Allergy Verified 10/09/18 15:57 - MEDICATIONS Home Medications: Ambulatory Orders Medication Instructions Recorded Confirmed Amlodipine Besylate 10 mg PO DAILY 10/09/18 08/07/21 lisinopriL [Lisinopril] 40 mg PO DAILY 08/07/21 08/07/21 Acetaminophen [Tylenol] 650 mg PO Q4HR PRN tablet 08/10/21 Acetaminophen/Cod 300/30 [Tylenol 1 tab PO Q4HR PRN #30 tablet 08/10/21 #3] Aspirin EC [Ecotrin] 81 mg PO DAILY tablet 08/10/21 Atorvastatin [Lipitor] 40 mg PO QPM tablet 08/10/21 Cefdinir 300 mg PO BID #8 cap 08/10/21 - LABS Result Diagrams: 08/10/21 05:34 08/10/21 05:34 - SEPSIS Sepsis Criteria: WBC count greater than 12,000 or less than 4000, Metabolic: lactate > 2 mmol/L
== END 2021-08-10 14:40 | DRG 65 ==
LOC: EDUNIT# → ED 10:13 → MS2 14:10
PROVIDERS: ADMIT Internal Medicine; ATTEND Specialist
DX: I63.9 Cerebral infarction, unspecified (principal); G81.91 Hemiplegia, unspecified affecting right dominant side; Q21.1 Atrial septal defect; M62.82 Rhabdomyolysis; N30.01 Acute cystitis with hematuria; N17.9 Acute kidney failure, unspecified; Z68.41 Body mass index [BMI] 40.0-44.9, adult; I10 Essential (primary) hypertension; R47.9 Unspecified speech disturbances; Z86.79 Personal history of other diseases of the circulatory system; R29.810 Facial weakness; I65.22 Occlusion and stenosis of left carotid artery; N28.9 Disorder of kidney and ureter, unspecified; E86.0 Dehydration; B96.4 Proteus (mirabilis) (morganii) as the cause of diseases classified elsewhere; R94.31 Abnormal electrocardiogram [ECG] [EKG]; F01.50 Vascular dementia, unspecified severity, without behavioral disturbance, psychotic disturbance, mood disturbance, and anxiety; R10.31 Right lower quadrant pain; E66.01 Morbid (severe) obesity due to excess calories; R77.8 Other specified abnormalities of plasma proteins; R53.1 Weakness; G83.89 Other specified paralytic syndromes; R32 Unspecified urinary incontinence; R47.01 Aphasia; Z20.822 Contact with and (suspected) exposure to COVID-19
CPT/HCPCS: 36415; 70450; 70496; 70498; 71045; 72192; 73502; 80048; 80053; 80061; 81001; 82550; 83605; 83690; 84484; 85025; 85610; 87040; 87077; 87086; 87181; 87631; 93005; 93306; 96361; 96365; 97162; 97165; 97530; 99285; A9270; Q9967; 0202U; 81003; 83721